=== PATIENT | female | born 1980 | race African-American/Black ===

== ENCOUNTER 2017-02-21 18:07 | Emergency (ER) | payer OTHER ==
[2017-02-21 18:40] VITALS: BP 139/87; PULSE 86; BMI 45.4
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
[2017-02-21] MEDS ORDERED: RANITIDINE HCL 150 MG TABLET (FP) PO ONE (20:09)
--- NOTE | 2017-02-21 20:26 | PDOC ---
*Physical Exam - Vital Signs Last Vital Signs Temp Pulse Resp BP Pulse Ox 86 18 139/87 99 02/21/17 18:37 02/21/17 18:37 02/21/17 18:37 02/21/17 18:37 Medical Decision Making - Medical Decision Making 02/21/17 20:25 agree with care from [facility]
[2017-02-21 20:31] LABS: BASOPHIL 0.4 % (0-2.0); EOSINOPHIL 0.5 % (0-4.5); MCH 29.7 pg (25.7-33.7); MCHC 32.7 g/dl (32.0-36.0); MEAN CELL VOLUME 90.7 fl (80-96); MEAN PLT VOLUME 8.7 fl (7.5-11.1); NEUTROPHILS 60.6 % (42.8-82.8); PLATELET COUNT 322 K/MM3 (134-434); RDW 14.6 % (11.6-15.6); WHITE BLOOD COUNT 11.9 K/mm3 (4.0-10.0)
[2017-02-21 21:03] LABS: ALBUMIN 3.9 g/dl (3.4-5.0); ANION GAP 7 (8-16); BILIRUBIN,TOTAL 0.3 mg/dL (0.2-1.0); CALCIUM 9.7 mg/dL (8.5-10.1); CO2 28 mmol/L (21-32); CREATININE 0.7 mg/dL (0.55-1.02); GLUCOSE,RANDOM 77 mg/dL (74-106); SGOT/AST 12 U/L (15-37); SGPT/ALT 17 U/L (12-78); TOT PROT 7.9 g/dl (6.4-8.2)
[2017-02-21 21:06] LABS: ALK PHOS 70 U/L (45-117); TROPONIN I < 0.02 ng/ml (0.00-0.05)
--- NOTE | 2017-02-22 17:16 | EKG ---
Test Reason : Blood Pressure : / mmHG Vent. Rate : 090 BPM Atrial Rate : 090 BPM P-R Int : 144 ms QRS Dur : 082 ms QT Int : 338 ms P-R-T Axes : 059 010 015 degrees QTc Int : 413 ms NORMAL SINUS RHYTHM POSSIBLE LEFT ATRIAL ENLARGEMENT NORMAL ECG WHEN COMPARED WITH ECG OF 01-OCT-2016 09:09, NO SIGNIFICANT CHANGE WAS FOUND Confirmed by MD SELWYN, YARITZA ([id number]) on 02/22/2017 5:15:41 PM Referred By: Confirmed By:YARITZA SAMANO MD
== END 2017-02-21 22:45 | disposition home or self-care (01) ==
LOC: JER 18:07
DX: R07.89 Other chest pain (principal); E78.00 Pure hypercholesterolemia, unspecified; F41.8 Other specified anxiety disorders; E66.09 Other obesity due to excess calories; Z68.42 Body mass index [BMI] 45.0-49.9, adult
CPT/HCPCS: 36415; 80053; 82550; 84484; 85025; 93005; 93010; 99282-25

== ENCOUNTER 2017-07-18 16:00 | Emergency (ER) | payer OTHER ==
[2017-07-18 16:14] VITALS: BP 121/79; PULSE 95; TEMP 98.9; BMI 45.4
[2017-07-18] MEDS ORDERED: ACETAMINOPHEN 500 MG TABLET (FP) PO ONE (17:04)
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
[2017-07-18] MEDS ORDERED: ACETAMINOPHEN 500 MG TABLET (FP) ONE (17:13)
== END 2017-07-18 19:30 | disposition home or self-care (01) ==
LOC: JERFT 16:00
PROC: 0HQ0XZZ Repair Scalp Skin, External Approach (ICD-10-PCS; principal; 2017-07-18)
DX: S01.01XA Laceration without foreign body of scalp, initial encounter (principal); G44.319 Acute post-traumatic headache, not intractable; Y04.2XXA Assault by strike against or bumped into by another person, initial encounter; Y93.89 Activity, other specified; Y92.89 Other specified places as the place of occurrence of the external cause; Y99.8 Other external cause status
CPT/HCPCS: 70450-TC; 84703; 99281-25

== ENCOUNTER 2017-08-22 08:00 | Inpatient (IN) | payer OTHER ==
[2017-09-04 16:21] VITALS: BMI 45.7
[2017-09-05] MEDS ORDERED: BUPIVACAINE HCL/PF 0.5% (5MG/ML) 10 ML VIAL ONE (13:07)
[2017-09-05] MEDS ORDERED: MIDAZOLAM HCL 2 MG/2 ML SINGLE DOSE VIAL ONE (13:58)
[2017-09-05] MEDS ORDERED: SUCCINYLCHOLINE CHLORIDE 200 MG/10 ML VIAL ONE (13:58)
[2017-09-05] MEDS ORDERED: ROCURONIUM BROMIDE 50 MG/5 ML VIAL ONE ×2 (13:58→15:08)
[2017-09-05] MEDS ORDERED: fentaNYL CITRATE 250 MCG/5 ML VIAL ONE (13:58)
[2017-09-05] MEDS ORDERED: PROPOFOL 20 ML ONE ×2 (13:58)
--- NOTE | 2017-09-05 14:07 | HP ---
History & Physical Update - History History: No Change - Physical Physical: No Change - Assessment Assessment: No Change - Plan Plan: No Change Currently as noted:: Laparoscopic possible open vertical sleeve gastrectomy
[2017-09-05] MEDS ORDERED: LIDOCAINE HCL/PF 2% SDV 5ML VIAL ONE (14:14)
[2017-09-05] MEDS ORDERED: ceFAZolin SODIUM 1 GM VIAL IVPB ONE (14:40)
[2017-09-05] MEDS ORDERED: ceFAZolin SODIUM 1 GM VIAL ONE (14:40)
[2017-09-05] MEDS ORDERED: DEXAMETHASONE SOD PHOSPHATE 4 MG/1 ML VIAL ONE (14:55)
[2017-09-05] MEDS ORDERED: NEOSTIGMINE METHYLSULFATE 0.5 MG/ML - 10 ML MDV ONE (15:54)
[2017-09-05] MEDS ORDERED: GLYCOPYRROLATE 0.2 MG/1 ML VIAL ONE ×2 (15:54)
[2017-09-05] MEDS ORDERED: BUPIVACAINE HCL/PF 0.5% (5MG/ML) 10 ML VIAL IJ ONE (16:00)
--- NOTE | 2017-09-05 16:08 | OP ---
Operative Note - Note: Operative Date: 09/05/17 Pre-Operative Diagnosis: Morbid obesity Operation: Laparoscopic vertical sleeve gastrectomy, wedge liver biopsy, upper endoscopy/EGD Post-Operative Diagnosis: Other (Morbid obesity, hepatomegaly) Surgeon: Reza Johnson Quality Control Tester: Matt Greenfield Anesthesia: General Specimens Removed: Greater curvature of stomach, left lobe wedge liver biopsy Estimated Blood Loss (mls): 30 Drains & Tubes with Location: 36 [address] Operative Report Dictated: Yes
[2017-09-05] MEDS ORDERED: ONDANSETRON 4 MG/2 ML VIAL IVPUSH SCH (16:15)
[2017-09-05] MEDS: ONDANSETRON 4 MG/2 ML VIAL IVPUSH PRN ×2 (16:15→22:10)
[2017-09-05] MEDS ORDERED: SODIUM CHLORIDE 1,000 ML IV SCH (16:15)
[2017-09-05] MEDS ORDERED: HYDROmorphone HCL CARPU-JECT 2 MG/1 ML DISP.SYRIN ONE ×2 (16:20→19:33)
[2017-09-05] MEDS: HYDROmorphone HCL CARPU-JECT 2 MG/1 ML DISP.SYRIN IVPB PRN ×4 (16:20→23:50)
[2017-09-05] MEDS ORDERED: ONDANSETRON 4 MG/2 ML VIAL ONE (16:25)
[2017-09-05] MEDS ORDERED: METOCLOPRAMIDE HCL INJECTION 10 MG/2 ML VIAL ONE (16:25)
[2017-09-05] MEDS ORDERED: FAMOTIDINE 20 MG/50 ML IVPB 20 MG/50 ML MG IVPB ONE (16:32)
[2017-09-05] MEDS ORDERED: HYDROmorphone HCL CARPU-JECT 1 MG/1 ML DISP.SYRIN IVPUSH PRN (16:58)
[2017-09-05] MEDS ORDERED: LACTATED RINGERS SOLUTION 1,000 ML IV SCH (17:00)
[2017-09-05] MEDS ORDERED: FAMOTIDINE 20 MG PREMIXED IVPB IVPB ONE (17:10)
[2017-09-05 17:32] LABS: MCH 30.2 pg (25.7-33.7); MCHC 32.6 g/dl (32.0-36.0); MEAN CELL VOLUME 92.5 fl (80-96); MEAN PLT VOLUME 8.2 fl (7.5-11.1); PLATELET COUNT 312 K/MM3 (134-434); RBC 4.32 M/mm3 (3.60-5.2)
[2017-09-05 17:43] LABS: ALBUMIN 2.8 g/dl (3.4-5.0); ANION GAP 5 (8-16); BILIRUBIN,TOTAL 0.2 mg/dL (0.2-1.0); BLOOD UREA NITROGEN 6 mg/dL (7-18); CHLORIDE 115 mmol/L (98-107); CO2 25 mmol/L (21-32); CREATININE 0.5 mg/dL (0.55-1.02); GLUCOSE,RANDOM 101 mg/dL (74-106); POTASSIUM 3.1 mmol/L (3.5-5.1); SGOT/AST 22 U/L (15-37); SGPT/ALT 27 U/L (12-78); SODIUM 145 mmol/L (136-145)
[2017-09-05 17:44] LABS: ALK PHOS 51 U/L (45-117); TOT PROT 5.6 g/dl (6.4-8.2)
[2017-09-05 17:46] LABS: CALCIUM 6.6 mg/dL (8.5-10.1)
[2017-09-05] MEDS: METOCLOPRAMIDE HCL INJECTION 10 MG/2 ML VIAL IVPUSH SCH ×2 (18:10→22:10)
[2017-09-05] MEDS: ACETAMINOPHEN 1000 MG/100 ML VIAL (NON FORMULARY) IVPB SCH ×2 (19:10→22:11)
[2017-09-05] MEDS ORDERED: ACETAMINOPHEN INJECTION 100 ML IVPB ONE (19:14)
--- NOTE | 2017-09-05 19:33 | CONSULT ---
Consultation: REQUESTING PROVIDER: CONSULT REQUEST: We have been asked to medically evaluate this patient for Hypocalcemia HISTORY OF PRESENT ILLNESS: 35 yo M with pmhx. of HTN, HLD, who is s/p gastric sleev POD #0, Denies any numness or tingling in extremities. No weakness, no chest pain or pressure. Pmhx: HTN, HLD, Obesity PShx: Choleycystectomy, hernia repair REVIEW OF SYSTEMS: CONSTITUTIONAL: Absent: fever, chills, diaphoresis, generalized weakness, malaise, loss of appetite, weight change HEENT: Absent: rhinorrhea, nasal congestion, throat pain, throat swelling, difficulty swallowing, mouth swelling, ear pain, eye pain, visual changes CARDIOVASCULAR: Absent: chest pain, syncope, palpitations, irregular heart rate, lightheadedness , peripheral edema RESPIRATORY: Absent: cough, shortness of breath, dyspnea with exertion, orthopnea, wheezing, stridor, hemoptysis GASTROINTESTINAL: Absent: abdominal pain, abdominal distension, nausea, vomiting, diarrhea, constipation, melena, hematochezia GENITOURINARY: Absent: dysuria, frequency, urgency, hesitancy, hematuria, flank pain, genital pain MUSCULOSKELETAL: Absent: myalgia, arthralgia, joint swelling, back pain, neck pain SKIN: Absent: rash, itching, pallor HEMATOLOGIC/IMMUNOLOGIC: Absent: easy bleeding, easy bruising, lymphadenopathy, frequent infections ENDOCRINE: Absent: unexplained weight gain, unexplained weight loss, heat intolerance, cold intolerance NEUROLOGIC: Absent: headache, focal weakness or paresthesias, dizziness, unsteady gait, seizure, mental status changes, bladder or bowel incontinence PSYCHIATRIC: Absent: anxiety, depression, suicidal or homicidal ideation, hallucinations. PHYSICAL EXAMINATION Vital Signs - 24 hr 09/05/17 09/05/17 11:57 16:11 Temperature 97.9 F 98.7 F Pulse Rate 80 81 Respiratory 16 18 Rate Blood Pressure 118/81 150/94 O2 Sat by Pulse 100 98 Oximetry (%) GENERAL: Awake, alert, and fully oriented, in no acute distress. HEAD: Normal with no signs of trauma. EYES: Pupils equal, round and reactive to light, extraocular movements intact, sclera anicteric, conjunctiva clear. No lid lag. EARS, NOSE, THROAT: Ears normal, nares patent, oropharynx clear without exudates. Moist mucous membranes. NECK: Normal range of motion, supple without lymphadenopathy, JVD, or masses. LUNGS: Breath sounds equal, clear to auscultation bilaterally. No wheezes, and no crackles. No accessory muscle use. HEART: Regular rate and rhythm, normal S1 and S2 without murmur, rub or gallop. ABDOMEN: Soft, nontender, not distended, normoactive bowel sounds, no guarding, no rebound, no masses. No hepatomegaly or splenomegaly. MUSCULOSKELETAL: Normal range of motion at all joints. No bony deformities or tenderness. No CVA tenderness. UPPER EXTREMITIES: 2+ pulses, warm, well-perfused. No cyanosis. No clubbing. Cap refill <2 seconds. No peripheral edema. LOWER EXTREMITIES: 2+ pulses, warm, well-perfused. No calf tenderness. No peripheral edema. NEUROLOGICAL: Cranial nerves II-XII intact. Normal speech. PSYCHIATRIC: Cooperative. Good eye contact. Appropriate mood and affect. SKIN: Warm, dry, normal turgor, no rashes or lesions noted. Laboratory Results - last 24 hr 09/05/17 09/05/17 09/05/17 11:28 11:28 16:45 WBC 14.0 H RBC 4.32 Hgb 13.0 Hct 40.0 MCV 92.5 MCH 30.2 MCHC 32.6 RDW 14.0 Plt Count 312 MPV 8.2 Sodium Potassium Chloride Carbon Dioxide Anion Gap BUN Creatinine Creat Clearance w eGFR Random Glucose Calcium Total Bilirubin AST ALT Alkaline Phosphatase Total Protein Albumin Serum , Qual Negative Blood Type O POSITIVE Antibody Screen Negative 09/05/17 16:45 WBC RBC Hgb Hct MCV MCH MCHC RDW Plt Count MPV Sodium 145 Potassium 3.1 L Chloride 115 H Carbon Dioxide 25 Anion Gap 5 L BUN 6 L Creatinine 0.5 L Creat Clearance w eGFR > 60 Random Glucose 101 Calcium 6.6 L* D Total Bilirubin 0.2 D AST 22 D ALT 27 D Alkaline Phosphatase 51 Total Protein 5.6 L D Albumin 2.8 L Serum , Qual Blood Type Antibody Screen Active Medications Generic Name Dose Route Start Last Admin Trade Name Freq PRN Reason Stop Dose Admin Acetaminophen 1,000 mg 09/05/17 16:15 Ofirmev Injection - IVPB 09/06/17 10:16 Q6H JADIEL Clonazepam 1 mg 09/05/17 22:00 Klonopin - PO TID JADIEL Enoxaparin Sodium 40 mg 09/05/17 22:00 Lovenox - SQ BID JADIEL Hydromorphone HCl 1 mg 09/05/17 16:05 09/05/17 18:10 Dilaudid Injection - IVPB 1 mg Q3H PRN Administration MODERATE PAIN Hydromorphone HCl 0.5 mg 09/05/17 16:58 Dilaudid Injection - IVPUSH [id number] PRN PAIN-PACU ORDER X 4 DOSES ONLY Famotidine 20 mg in 12 mls @ 360 mls/hr 09/05/17 22:00 Pepcid 20 Mg/12 Ml Push IVPUSH BID JADIEL Sodium Chloride 1,000 mls @ 150 mls/hr 09/05/17 16:15 Normal Saline - IV ASDIR JADIEL Lactated Ringer's 1,000 mls @ 75 mls/hr 09/05/17 17:00 Lactated Ringers Solution IV ASDIR JADIEL Influenza Virus Vaccine Quadrival 60 mcg 09/06/17 12:05 Flulaval Quad [id number] IM 09/06/17 12:06 .ONCE ONE Metoclopramide HCl 10 mg 09/05/17 16:15 09/05/17 18:10 Reglan Injection - IVPUSH 10 mg Q6H JADIEL Administration Ondansetron HCl 4 mg 09/05/17 16:58 09/05/17 16:15 Zofran Injection IVPUSH 4 mg Q6H PRN Administration NAUSEA AND/OR VOMITING ASSESSMENT/PLAN: 35 yo M with pmhx. of HTN, HLD, who is s/p gastric sleev POD #0, medicine being consulted for hypocalcemia 1.) Hypocalcemia - CC 7.56 - Chk. Ionized ca in AM -IF resuming oral diet then can take Ca Citrate 500 TID in Conjunction with Vitamin D 800-2000 IU Q day - If cannot tolerate oral meds can give calcium gluconate 1 g Iv - Recheck Level tomorrow and 1 week after d/c Dispo: We will continue to follow the patient. Thank you for this consultative opportunity. Visit type - Emergency Visit Emergency Visit: Yes ED Registration Date: 09/05/17 Care time: The patient presented to the Emergency Department on the above date and was hospitalized for further evaluation of their emergent condition. - New Patient This patient is new to me today: Yes Date on this admission: 09/06/17 - Critical Care Critical Care patient: No
[2017-09-05] MEDS ORDERED: FAMOTIDINE IV 20 MG/12 ML VIAL IVPUSH SCH (22:00)
[2017-09-05] MEDS: clonazePAM 0.5 MG TABLET PO SCH ×2 (22:11→22:17)
[2017-09-05] MEDS: ENOXAPARIN NA (PORCINE) 40 MG/0.4 ML DISP.SYRIN SQ SCH (22:11)
[2017-09-06] MEDS: HYDROmorphone HCL CARPU-JECT 2 MG/1 ML DISP.SYRIN IVPB PRN ×5 (03:14→20:01)
[2017-09-06] MEDS: ACETAMINOPHEN 1000 MG/100 ML VIAL (NON FORMULARY) IVPB SCH ×2 (04:32→16:46)
[2017-09-06] MEDS: METOCLOPRAMIDE HCL INJECTION 10 MG/2 ML VIAL IVPUSH SCH ×4 (04:33→21:31)
[2017-09-06] MEDS: clonazePAM 0.5 MG TABLET PO SCH ×3 (05:45→21:39)
[2017-09-06 06:52] LABS: HEMATOCRIT 39.4 % (32.4-45.2); HEMOGLOBIN 12.6 GM/dL (10.7-15.3); MCH 29.6 pg (25.7-33.7); MCHC 31.9 g/dl (32.0-36.0); MEAN CELL VOLUME 92.8 fl (80-96); MEAN PLT VOLUME 8.2 fl (7.5-11.1); PLATELET COUNT 321 K/MM3 (134-434); RBC 4.24 M/mm3 (3.60-5.2); RDW 13.7 % (11.6-15.6); WHITE BLOOD COUNT 18.1 K/mm3 (4.0-10.0)
[2017-09-06 07:24] LABS: ALBUMIN 3.3 g/dl (3.4-5.0); ALK PHOS 61 U/L (45-117); ANION GAP 11 (8-16); BILIRUBIN,TOTAL 0.3 mg/dL (0.2-1.0); BLOOD UREA NITROGEN 5 mg/dL (7-18); CALCIUM 8.7 mg/dL (8.5-10.1); CHLORIDE 103 mmol/L (98-107); CO2 26 mmol/L (21-32); CREATININE 0.7 mg/dL (0.55-1.02); GLUCOSE,RANDOM 90 mg/dL (74-106); SGOT/AST 29 U/L (15-37); SGPT/ALT 32 U/L (12-78); SODIUM 140 mmol/L (136-145); TOT PROT 7.1 g/dl (6.4-8.2)
--- NOTE | 2017-09-06 09:39 | SPEC ---
DATE OF OPERATION: 09/05/2017 SURGEON: Reza Johnson MD SKIDDER RUNNER: Matt Greenfield MD PREOPERATIVE DIAGNOSIS: Morbid obesity, hypercholesterolemia, and body mass index of 45.7. POSTOPERATIVE DIAGNOSIS: Morbid obesity, hypercholesterolemia, and body mass index of 45.7, as well as hepatomegaly PROCEDURE: Laparoscopic vertical sleeve gastrectomy, laparoscopic wedge liver biopsy and upper endoscopy/esophagogastroduodenoscopy. SPECIMEN: Greater curvature of the stomach and left lobe of the liver wedge liver biopsy. ESTIMATED BLOOD LOSS: 30 mL. DRAINS: None. ANESTHESIA: GET. BOUGIE SIZE: 36-Persian. REASON FOR PROCEDURE: This is a 36-year-old female who presented to the office for weight loss options. After describing different options, she decided to proceed with a laparoscopic possible open vertical sleeve gastrectomy, possible liver biopsy and upper endoscopy. RISKS AND BENEFITS: After describing the different options for weight loss management, the patient decided to proceed with a laparoscopic, possible open vertical sleeve gastrectomy. The patient was seen by the respective subspecialties and cleared for surgery. The risks and benefits of the procedure were explained. These included bleeding, infection, hernia, DE, DVT, PE, injury to surrounding structures including the liver, colon, bowel, spleen, esophagus, vessel injury, nerve injury, weight regain, gastric leak, staple line leak, sleeve leak, obstruction, vitamin deficiency, hair loss and as some of the possible complications. The patient understood and signed informed consent. DESCRIPTION OF PROCEDURE: The patient was placed supine on the operating room table. The patient underwent general endotracheal intubation. A Christiansen catheter was inserted. The arms were brought out at 90 degrees and secured. A footboard was placed and the legs were secured laterally with padding. The abdomen was prepped and draped in the usual sterile fashion. A timeout was performed. An incision was made in the left upper quadrant and a Veress needle inserted. Pneumoperitoneum was established. Subsequently, the Veress needle was removed and a 12-mm trocar was placed. The laparoscopic camera was then inserted and inspection of the abdominal cavity was performed. An incision was then made in the supraumbilical area and a 15-mm trocar was placed under direct visualization. A 5-mm trocar was then placed in the right upper quadrant and a 5-mm trocar was placed below the left subcostal margin. A stab wound was made in the subxiphoid area and a Yancy clamp inserted and removed to dilate the tract. A Chirag liver retractor was inserted. The post was secured at the bedside by the nursing staff. The patient was placed in steep reverse Trendelenburg position and the Chirag liver retractor was used to secure the liver towards the anterior abdominal wall. The pylorus was identified and 6 cm proximal to it, the lesser sac was entered using the LigaSure device. All lateral attachments to the greater curvature of the stomach, including the short gastric vessels, were ligated using the LigaSure device toward the gastrosplenic and gastrophrenic ligaments. Once this was done in its entirety, it was confirmed that all tubes within the nasal or oropharyngeal cavity, including a temperature probe, was removed by Anesthesia. The bougie was then inserted by Anesthesia. Transection of the stomach was then begun staying adjacent to the bougie but away from the angularis. Transection of the stomach was performed near the portion of the stomach where the lesser sac was entered. Two laparoscopic Endo-TORREY black kristen were used at this location. Laparoscopic Endo TORREY purple staple loads were then used for the remainder of the transection until the greater curvature of the stomach was fully transected. This was done staying close to the bougie. Care was taken to stay away from the angle of His cephalad. The staple line was then inspected. Hemostasis was identified. A leak test was then performed. It was clamped distally to the staple line. Irrigation solution was placed in the left upper quadrant and air was insufflated by Anesthesia into the sleeve. No leaks were identified. No obstruction was identified. This was done through the entirety of the staple line. At this point, the irrigation solution was suctioned and again, hemostasis was noted. A wedge liver biopsy was then performed. The left lobe of the liver was identified and a portion of the edge was grasped. Using electrocautery, a wedge of the liver was excised. This was removed and sent off the field as specimen. Hemostasis at the site of the wedge liver biopsy was attained using electrocautery. The 15-mm supraumbilical trocar was then removed and the greater curvature specimen removed from the site using a sponge stick ly. The specimen was inspected and a Veress needle inserted. The specimen insufflated adequately and no leak was identified. The staple line was noted to be intact. A Art-Levi device was then used to temporarily close the fascia with a 0 Vicryl suture at the site. The 15-mm trocar was then reinserted and the 12-mm trocar in the left upper quadrant was removed. The fascia at this site was then closed using the Art-Levi device with a 0 Vicryl suture. Again, hemostasis was noted. The Chirag liver retractor was then removed under direct visualization. Pneumoperitoneum was desufflated and the fascial sutures were secured. Hemostasis was noted at all incision sites and Marcaine was injected at all incision sites. All incision sites were closed using 4-0 Biosyn. Sterile dressings were applied. In addition at the end of the case, upper endoscopy was performed to further evaluate for obstruction or leak. The endoscope was fully inserted, and the esophagus, GE junction, gastric pouch, and staple line was inspected. Hemostasis was noted. No leak or obstruction was noted. The patient tolerated the procedure well and was transferred to the recovery room in stable condition. Francisco Javier [id number]
[2017-09-06] MEDS ORDERED: PT OWN MED DRAWER 7, Y5N ONE (11:05)
[2017-09-06] MEDS: ENOXAPARIN NA (PORCINE) 40 MG/0.4 ML DISP.SYRIN SQ SCH ×2 (11:50→21:39)
[2017-09-06] MEDS: FAMOTIDINE 20 MG/50 ML IVPB 20 MG/50 ML MG IVPB SCH ×2 (11:50→21:30)
[2017-09-06] MEDS ORDERED: FLU VACCINE QUAD 60 MCG/0.5 ML (MDV 17-18) IM ONE (15:00)
--- NOTE | 2017-09-06 15:55 | PN ---
Progress Note (short form) - Note Progress Note: Post op day#1.S/P Gastric sleeve placement under GA uneventful.Patient stable.No any anesthesia related problem.Patient DC from the anesthesia care.
[2017-09-06] MEDS ORDERED: oxyCODONE HCL 5 MG TABLET PO PRN (16:15)
[2017-09-06] MEDS: AMOX TR/POT CLAV 875MG/125MG TABLETS (FP) PO SCH ×2 (16:37→18:04)
--- NOTE | 2017-09-06 18:06 | PN ---
Progress Note (short form) - Note Progress Note: POD 1 Mild nausea Pain controlled Vital Signs Period Temp Pulse Resp BP Sys/Newell Pulse Ox Last 24 Hr 97.5 F-98.6 F 69-87 16-18 120-145/77-98 97-100 Abd soft CBC,CMP WBC 18.1 K/mm3 (4.0-10.0) H 09/06/17 05:40 RBC 4.24 M/mm3 (3.60-5.2) 09/06/17 05:40 Hgb 12.6 GM/dL (10.7-15.3) 09/06/17 05:40 Hct 39.4 % (32.4-45.2) 09/06/17 05:40 MCV 92.8 fl (80-96) 09/06/17 05:40 MCH 29.6 pg (25.7-33.7) 09/06/17 05:40 MCHC 31.9 g/dl (32.0-36.0) L 09/06/17 05:40 RDW 13.7 % (11.6-15.6) 09/06/17 05:40 Plt Count 321 K/MM3 (134-434) 09/06/17 05:40 MPV 8.2 fl (7.5-11.1) 09/06/17 05:40 Sodium 140 mmol/L (136-145) 09/06/17 05:40 Potassium 4.0 mmol/L (3.5-5.1) 09/06/17 05:40 Chloride 103 mmol/L (98-107) 09/06/17 05:40 Carbon Dioxide 26 mmol/L (21-32) 09/06/17 05:40 Anion Gap 11 (8-16) 09/06/17 05:40 BUN 5 mg/dL (7-18) L 09/06/17 05:40 Creatinine 0.7 mg/dL (0.55-1.02) 09/06/17 05:40 Creat Clearance w eGFR > 60 (>60) 09/06/17 05:40 Random Glucose 90 mg/dL (74-106) 09/06/17 05:40 Calcium 8.7 mg/dL (8.5-10.1) D 09/06/17 05:40 Total Bilirubin 0.3 mg/dL (0.2-1.0) D 09/06/17 05:40 AST 29 U/L (15-37) D 09/06/17 05:40 ALT 32 U/L (12-78) 09/06/17 05:40 Alkaline Phosphatase 61 U/L (45-117) D 09/06/17 05:40 Total Protein 7.1 g/dl (6.4-8.2) D 09/06/17 05:40 Albumin 3.3 g/dl (3.4-5.0) L 09/06/17 05:40 Serum , Qual Negative 09/05/17 11:28 UGI: no leak/obstruction Clears CBC in am Ambulate
--- NOTE | 2017-09-06 18:34 | PN ---
Teaching Attending Note Name of Resident: Bello Melara ATTENDING PHYSICIAN STATEMENT I saw and evaluated the patient. I reviewed the resident's note and discussed the case with the resident. I agree with the resident's findings and plan as documented. SUBJECTIVE: seen at 11 am No fever or chills . has ABd pain , has no N/V . reports intermittent pressure with urination. denies any vaginal discharge , reports being treated with amoxicillin for a dental abscess, ( stared 2 days prior to presentation ) . she reports cough with green sputum, which developed after 10 days of URI sx . No BM yet OBJECTIVE: NAD , AAOx3 HEENT : No facial drop, MMM. no eythema on gum , RU molar with a temporary filling CV: RRR, no MRG Lungs : CTAB Ext: no edema Abd: soft, Nd, obese, TTP in all quadrants, surgical dressing on endoscopic surgical wounds . hypoactive BS. ASSESSMENT AND PLAN: 36 y/o lady with h/o morbid obesity, and recent diagnosis of dental abscess who presented for a gastric sleeve surgery and medicine was consulted for hypocalcemia 1- Hypocalcemia: corrected ca today is NL without intervention pt has no sign sor sx of hypocalcemia anticipate hypocalcemia after surgery due to diet change calcium supplements and Vit D 2- Leukocytosis : most likley reactive to stress after sx. No fever or chills . - check UA due to urinary complaints - she might have bacterial bronchitis given productive cough of green sputum x days after URI - pt was started on amoxicillin for a dental abscess 2 days prior to presentation with improvement in her facial swelling and sx , recommend Augmentin 875 q 12 hours. - cxray 3- Recommend screening for DM with A1c. DVT px per surgical team.
[2017-09-06] MEDS: SODIUM CHLORIDE 1,000 ML IV SCH ×2 (19:21→20:10)
--- NOTE | 2017-09-06 20:08 | PN ---
Physical Exam: SUBJECTIVE: Patient seen and examined Pt denies camilla-oral numbness or tingling, weakness, paresthesias in other parts of her body. She endorses a productive cough that started 10 days ago with clear sputum that converted to green sputum. She states that she was placed on amoxicillin for prior dental abscess. She also endorses intermittent bladder pressure on urination that has occurred for past two weeks, and she complains of back pain that began after surgery. OBJECTIVE: Vital Signs Period Temp Pulse Resp BP Sys/Newell Pulse Ox Last 24 Hr 97.5 F-98.9 F 68-87 16-20 120-150/77-91 97-100 GENERAL: obese female, sitting in bed in NAD HEENT: poor dentition. no obvious gum swelling, bleeding, or masses NECK: Trachea midline, full range of motion, supple. LUNGS: Breath sounds equal, clear to auscultation bilaterally, no wheezes, no crackles, no accessory muscle use. HEART: Regular rate and rhythm, S1, S2 without murmur, rub or gallop. ABDOMEN: obese, soft, nontender, nondistended, normoactive bowel sounds, no guarding, no rebound, no hepatosplenomegaly, no masses. EXTREMITIES: 2+ pulses, warm, well-perfused, no edema. NEUROLOGICAL: Cranial nerves II through XII grossly intact. Normal speech, gait not observed. Laboratory Results - last 24 hr 09/06/17 09/06/17 05:40 05:40 WBC 18.1 H RBC 4.24 Hgb 12.6 Hct 39.4 MCV 92.8 MCH 29.6 MCHC 31.9 L RDW 13.7 Plt Count 321 MPV 8.2 Sodium 140 Potassium 4.0 Chloride 103 Carbon Dioxide 26 Anion Gap 11 BUN 5 L Creatinine 0.7 Creat Clearance w eGFR > 60 Random Glucose 90 Calcium 8.7 D Total Bilirubin 0.3 D AST 29 D ALT 32 Alkaline Phosphatase 61 D Total Protein 7.1 D Albumin 3.3 L Active Medications Generic Name Dose Route Start Last Admin Trade Name Freq PRN Reason Stop Dose Admin Clonazepam 1 mg 09/05/17 22:00 09/06/17 16:14 Klonopin - PO Not Given TID [facility] Enoxaparin Sodium 40 mg 09/05/17 22:00 09/06/17 11:50 Lovenox - SQ 40 mg BID JADIEL Administration Hydromorphone HCl 1 mg 09/05/17 16:05 09/06/17 16:37 Dilaudid Injection - IVPB 1 mg Q3H PRN Administration MODERATE PAIN Hydromorphone HCl 0.5 mg 09/05/17 16:58 Dilaudid Injection - IVPUSH [id number] PRN PAIN-PACU ORDER X 4 DOSES ONLY Famotidine/Sodium Chloride 20 mg in 50 mls @ 100 mls/hr 09/05/17 22:30 11:50 Pepcid 20 Mg Premixed Ivpb - IVPB 100 mls/hr BID JADIEL Administration Sodium Chloride 1,000 mls @ 75 mls/hr 09/06/17 16:15 09/06/17 19:21 Normal Saline - IV Not Given ASDIR JADIEL Metoclopramide HCl 10 mg 09/05/17 16:15 09/06/17 16:38 Reglan Injection - IVPUSH 10 mg Q6H JADIEL Administration Oxycodone HCl 5 mg 09/06/17 16:15 Roxicodone - PO Q4H PRN PAIN LEVEL 4 - 6 ASSESSMENT/PLAN: 36F w/ hx of morbid obesity, s/p gastric sleeve surgery POD#1, medicine consulted for hypocalcemia. #Hypocalcemia- resolved -corrected calcium today is wnl without any intervention -pt demonstrates no signs or sx of hypocalcemia -calcium supplements and vit D for suspected future nutritional deficiencies #Leukocytosis -most likely 2/2 leukemoid reaction after surgery. -no fever -continue to trend temps and wbc counts -f/u UA -f/u CXR #productive cough -possibly 2/2 bacterial bronchitis - pt was started on amoxicillin for a dental abscess 2 days prior to presentation with improvement in her facial swelling and sx, recommend Augmentin 875mg q12 hours. -f/u CXR #Recommend screening for DM with A1c. #DVT px per surgical team. Case discussed with attending, Dr. Gillis. -Bello Melara MD PGY1 Visit type - Emergency Visit Emergency Visit: No - New Patient This patient is new to me today: Yes Date on this admission: 09/06/17 - Critical Care Critical Care patient: No
[2017-09-07] MEDS: METOCLOPRAMIDE HCL INJECTION 10 MG/2 ML VIAL IVPUSH SCH ×2 (04:50→10:26)
[2017-09-07] MEDS: HYDROmorphone HCL CARPU-JECT 2 MG/1 ML DISP.SYRIN IVPB PRN ×2 (05:40→10:27)
[2017-09-07] MEDS: clonazePAM 0.5 MG TABLET PO SCH (05:44)
[2017-09-07 07:41] LABS: BASO % 0.5 % (0-2.0); EOS % 0.2 % (0-4.5); HEMATOCRIT 36.8 % (32.4-45.2); HEMOGLOBIN 12.1 GM/dL (10.7-15.3); LYMPH % 13.5 % (8-40); MCH 30.3 pg (25.7-33.7); MEAN CELL VOLUME 91.9 fl (80-96); MEAN PLT VOLUME 7.9 fl (7.5-11.1); MONO % 8.6 % (3.8-10.2); NEUT % 77.2 % (42.8-82.8); PLATELET COUNT 282 K/MM3 (134-434); RBC 4.01 M/mm3 (3.60-5.2); RDW 13.6 % (11.6-15.6); WHITE BLOOD COUNT 15.3 K/mm3 (4.0-10.0)
--- NOTE | 2017-09-07 08:34 | PN ---
Physical Exam: SUBJECTIVE: Patient seen and examined. No fever or chills. No cough, shortness of breath or chest pain. No BM or flatus, but has been burping. No tooth pain. OBJECTIVE: Vital Signs Period Temp Pulse Resp BP Sys/Newell Pulse Ox Last 24 Hr 98.1 F-98.9 F 68-79 18-20 113-150/77-88 97 GENERAL: obese female, sitting in bed in NAD HEENT: poor dentition. no obvious gum swelling, bleeding, or masses NECK: Trachea midline, full range of motion, supple. LUNGS: CTAB HEART: rrr, normal s1/s2, no m/r/g ABDOMEN: obese, soft, non-distended, c/d/i intact over surgical sites, diffusely ttp LOWER EXTREMITIES: 2+ pulses, wwp, no edema CBC, BMP 09/07/17 06:00 09/07/17 06:00 Hemoglobin A1c % 5.4 Urine Test Results Urine Color Ltyellow 09/07/17 05:45 Urine Appearance Clear 09/07/17 05:45 Urine pH 6.0 (5.0-8.0) 09/07/17 05:45 Ur Specific [place] 1.012 (1.001-1.035) 09/07/17 05:45 Urine Protein Negative (NEGATIVE) 09/07/17 05:45 Urine Glucose (UA) Negative (NEGATIVE) 09/07/17 05:45 Urine Ketones 2+ (NEGATIVE) H 09/07/17 05:45 Urine Blood 3+ (NEGATIVE) H 09/07/17 05:45 Urine Nitrite Negative (NEGATIVE) 09/07/17 05:45 Urine Bilirubin Negative (NEGATIVE) 09/07/17 05:45 Ur Leukocyte Esterase Trace (NEGATIVE) 09/07/17 05:45 Ur Epithelial Cells Few /HPF (FEW) 09/07/17 05:45 Urine Bacteria Rare /hpf (NONE SEEN) 09/07/17 05:45 Urine Mucus Few 09/07/17 05:45 Active Medications Clonazepam (Klonopin -) 1 mg PO TID [facility] Last Admin: 09/07/17 05:44 Dose: Not Given Enoxaparin Sodium (Lovenox -) 40 mg SQ BID [facility] Last Admin: 09/07/17 10:26 Dose: 40 mg Hydromorphone HCl (Dilaudid Injection -) 1 mg IVPB Q3H PRN PRN Reason: MODERATE PAIN Last Admin: 09/07/17 10:27 Dose: 1 mg Hydromorphone HCl (Dilaudid Injection -) 0.5 mg IVPUSH [id number] PRN PRN Reason: PAIN-PACU ORDER X 4 DOSES ONLY Famotidine/Sodium Chloride (Pepcid 20 Mg Premixed Ivpb -) 20 mg in 50 mls @ 100 mls/hr IVPB BID [facility] Last Admin: 09/07/17 10:26 Dose: 100 mls/hr Sodium Chloride (Normal Saline -) 1,000 mls @ 75 mls/hr IV ASDIR [facility] Last Admin: 09/06/17 20:10 Dose: 75 mls/hr Metoclopramide HCl (Reglan Injection -) 10 mg IVPUSH Q6H [facility] Last Admin: 09/07/17 10:26 Dose: 10 mg Oxycodone HCl (Roxicodone -) 5 mg PO Q4H PRN PRN Reason: PAIN LEVEL 4 - 6 ASSESSMENT/PLAN: 36F w/ hx of morbid obesity, s/p gastric sleeve surgery POD#2, medicine consulted for hypocalcemia. #Hypocalcemia- resolved -recommend calcium supplements and vit D for suspected future nutritional deficiencies #Leukocytosis, continues to downtrend, UA and CXR neg, likely 2/2 leukemoid reaction after surgery -Continue to monitor for signs of infection #productive cough, resolving, possibly 2/2 bacterial bronchitis, CXR 09/06/17 neg for acute pathology -Given recent treatment for dental abscess and recent URI symptoms consider Augmentin 875mg q12 hours for 5-7 days #Diabetes Screening - negative (Alc 5.4%) #DVT px per surgical team. Thank your for this consultative opportunity. Please call back if needed. d/w Dr. Carlin Richard MD PGY1 - Internal Medicine Visit type - Emergency Visit Emergency Visit: No - New Patient This patient is new to me today: Yes Date on this admission: 09/07/17 - Critical Care Critical Care patient: No
[2017-09-07 08:35] LABS: URINE APPEARANCE CLEAR; URINE BILIRUBIN NEGATIVE (NEGATIVE); URINE BLOOD 3+ (NEGATIVE); URINE COLOR LTYELLOW; URINE GLUCOSE (UA) NEGATIVE (NEGATIVE); URINE KETONE 2+ (NEGATIVE); URINE LEUK ESTERASE TRACE (NEGATIVE); URINE NITRITE NEGATIVE (NEGATIVE); URINE PROTEIN NEGATIVE (NEGATIVE)
[2017-09-07 09:00] LABS: EPI CELLS FEW /HPF (FEW); URINE BACTERIA RARE /hpf (NONE SEEN); URINE MUCUS FEW; YEAST MODERATE
[2017-09-07] MEDS: FAMOTIDINE 20 MG/50 ML IVPB 20 MG/50 ML MG IVPB SCH (10:26)
[2017-09-07] MEDS: ENOXAPARIN NA (PORCINE) 40 MG/0.4 ML DISP.SYRIN SQ SCH (10:26)
[2017-09-07 10:52] VITALS: BP 137/77; PULSE 68; TEMP 97.8
--- NOTE | 2017-09-07 13:30 | PN ---
Teaching Attending Note Name of Resident: Beena Richard ATTENDING PHYSICIAN STATEMENT I saw and evaluated the patient. I reviewed the resident's note and discussed the case with the resident. I agree with the resident's findings and plan as documented. SUBJECTIVE: seen at 11 am . minimla Ab dpain, NO BM or flatus . tolerated clears OBJECTIVE: NAD , AAOx3 CV: RRR, no MRG Lungs : CTAB Ext: no edema Abd: soft, Nd, obese, TTP in all quadrants, surgical dressing on endoscopic surgical wounds . hypoactive BS. ASSESSMENT AND PLAN: 36 y/o lady with h/o morbid obesity, and recent diagnosis of dental abscess who presented for a gastric sleeve surgery and medicine was consulted for hypocalcemia 1- Hypocalcemia: resolved.calcium supp and vit d as outpt 2- Leukocytosis : improved . no fever . cxray and UA with no infection cont Abx for dental abscess . f/u with dentist for rot canal 3- No DM 4- Microscopic hematuria . not clear if she has her period. need repeat UA if no period. pt has left already , will call her and notify of need to follow up with PCP
--- NOTE | 2017-09-09 16:29 | PATH ---
Surgical Pathology Report Patient Name: MILADYS WHITE [facility]. Rec. #: [id number] /Age/Gender: 1980 (Age: 36) / F Account: [id number] Location: 4 PEDS/ADOL Taken: 09/05/2017 Received: 09/06/2017 Reported: 09/09/2017 Physicians: Reza Johnson M.D. Specimen(s) Received A: LIVER BIOPSY B: GREATER CURVATURE STOMACH Clinical History Morbid obesity Final Diagnosis A. LIVER, WEDGE BIOPSY: LIVER PARENCHYMA WITH MILD STEATOSIS (< 10%). NO INCREASE IN IRON AND FIBROSIS ON PERFORMED SPECIAL STAINS (IRON AND TRICHROME). B. STOMACH, GREATER CURVATURE, LAPAROSCOPIC VERTICAL SLEEVE GASTRECTOMY: PORTION OF STOMACH WITH MILD CHRONIC GASTRITIS. IMMUNOHISTOCHEMICAL STAIN FOR H. PYLORI IS NEGATIVE. Electronically Signed Jenny Wallace M.D. Gross Description A. Received in formalin labeled "liver biopsy," is a 1.1 x 1.1 x 0.4 cm mathur, irregular portion of liver tissue. The specimen is bisected and entirely submitted in one cassette. B. Received in formalin, labeled "greater curvature of stomach," is a 115 gram, 19.5 x 3.5 x 3.2 cm. portion of stomach with a stapled margin of resection. The serosa is mathur-suggs with minimal attached fat. The mucosa is mathur-pink with normal folds. No mucosal masses are identified. Classroom Technology Coach sections are submitted in one cassette. DL/09/06/2017 saudi/09/06/2017
== END 2017-09-07 12:31 | disposition home or self-care (01) | DRG 403 ==
LOC: EDSTATUS 08:00 → JSAMEDAYSX 09-05 11:21 → J4S 09-05 21:24
PROVIDERS: ADMIT Surgery; ATTEND Surgery
PROC: 0DJ08ZZ Inspection of Upper Intestinal Tract, Via Natural or Artificial Opening Endoscopic (ICD-10-PCS; 2017-09-05)
PROC: 0DB64Z3 Excision of Stomach, Percutaneous Endoscopic Approach, Vertical (ICD-10-PCS; principal; 2017-09-05 13:00)
PROC: 0FB24ZX Excision of Left Lobe Liver, Percutaneous Endoscopic Approach, Diagnostic (ICD-10-PCS; 2017-09-05 13:00)
DX: E66.01 Morbid (severe) obesity due to excess calories (principal); Z68.42 Body mass index [BMI] 45.0-49.9, adult; R16.0 Hepatomegaly, not elsewhere classified; K76.0 Fatty (change of) liver, not elsewhere classified; E83.51 Hypocalcemia; D72.829 Elevated white blood cell count, unspecified; R31.29 Other microscopic hematuria; K29.50 Unspecified chronic gastritis without bleeding; I10 Essential (primary) hypertension; E78.5 Hyperlipidemia, unspecified
CPT/HCPCS: 36415; 71045-TC; 74241-TC; 80053; 81003; 81015; 83036; 84703; 85025; 85027; 86850; 86900; 86901; 87081; 88307-TC; 94760; 97802

== ENCOUNTER 2017-09-12 16:43 | Observation (INO) | payer OTHER ==
[2017-09-12 17:01] VITALS: BMI 43.8
--- NOTE | 2017-09-12 17:36 | PDOC ---
History of Present Illness - General Chief Complaint: Pain Stated Complaint: ABD PAIN Time Seen by Provider: 09/12/17 17:26 History Source: Patient Exam Limitations: No Limitations - History of Present Illness Initial Comments: 09/12/17 17:35 36F with pmh gastric sleeve placement last week By Dr. Johnson presents with epigastric pain radiating around her right side to her back. Denies nausea, vomiting. No bm since last week but passes gas. Difficulty eating because of pain, loss of appetite. 09/12/17 20:43 09/12/17 20:44 09/12/17 22:55 09/12/17 23:32 Past History - Past Medical History Allergies/Adverse Reactions: Allergies Allergy/AdvReac Type Severity Reaction Status Date / Time ciprofloxacin [From Cipro] Allergy Intermediate Hives Verified 09/12/17 20:00 ciprofloxacin HCl Allergy Intermediate Hives Verified 09/12/17 20:00 [From Cipro] hydromorphone [From Dilaudid] Allergy Intermediate Hives Verified 09/12/17 21:27 shrimp Allergy "HIVES" Verified 09/12/17 20:00 Home Medications: Ambulatory Orders Clonazepam [Klonopin] 1 mg PO TID 09/04/17 Famotidine [Pepcid] 20 mg PO BID #60 tablet 09/05/17 Ibuprofen [Motrin -] 800 mg PO QID PRN 09/05/17 Oxycodone HCl/Acetaminophen [Percocet 5-325 mg Tablet] 1 - 2 tab PO Q6H #28 tab MDD 4 09/05/17 Anemia: No Asthma: No Cancer: No Cardiac Disorders: No CVA: No COPD: No CHF: No Diabetes: No GI Disorders: No Disorders: No HTN: No Hypercholesterolemia: Yes Liver Disease: No Psychiatric Problems: Yes (ANXIETY.DEPRESSION) Seizures: Yes (1YEAR AGO-WAS ON MED FOR 2WEEKS THEN STOPPED (PMD AWARE)) Thyroid Disease: No - Surgical History Abdominal Surgery: Yes (UMBILICAL HERNIA REPAIR) Cholecystectomy: Yes - Immunization History Td Vaccination: No Immunization Up to Date: Yes - Suicide/Smoking/Psychosocial Hx Smoking Status: No Smoking History: Former smoker Years of Tobacco Use: 0 Have you smoked in the past 12 months: No Number of Cigarettes Smoked Daily: 1 If you are a former smoker, when did you quit?: 4YRS AGO Cigars Per Day: 0 Information on smoking cessation initiated: No Hx Alcohol Use: No Drug/Substance Use Hx: No Substance Use Type: Alcohol, Marijuana Hx Substance Use Treatment: No Review of Systems - Review of Systems Able to Perform ROS?: Yes Is the patient limited Hungarian proficient: No Constitutional: Yes: Loss of Appetite HEENTM: No: Symptoms Reported Respiratory: No: Symptoms reported Cardiac (ROS): No: Symptoms Reported ABD/GI: Yes: See HPI : No: Symptoms Reported Musculoskeletal: No: Symptoms Reported Integumentary: No: Symptoms Reported Neurological: No: Symptoms reported All Other Systems: Reviewed and Negative *Physical Exam - Vital Signs Last Vital Signs Temp Pulse Resp BP Pulse Ox 97.7 F 100 H 20 143/84 100 09/12/17 16:56 09/12/17 16:56 09/12/17 16:56 09/12/17 16:56 09/12/17 16:56 - Physical Exam General Appearance: Yes: Nourished, Appropriately Dressed, Moderate Distress, Obese HEENT: positive: EOMI, ZOEY, Normal ENT Inspection Neck: negative: Tender Respiratory/Chest: positive: Lungs Clear, Normal Breath Sounds. negative: Chest Tender, Respiratory Distress Cardiovascular: positive: Regular Rhythm, Regular Rate, S1, S2 Gastrointestinal/Abdominal: positive: Normal Bowel Sounds, Tender (epigastric) Extremity: positive: Normal Capillary Refill, Normal Inspection, Normal Range of Motion Neurologic: positive: Fully Oriented, Alert, Normal Mood/Affect ED Treatment Course - LABORATORY CBC & Chemistry Diagram: 09/12/17 18:03 09/12/17 18:03 Medical Decision Making - Medical Decision Making 09/12/17 22:01 Given 0.5 dilaudid for pain 09/12/17 22:23 Hives from Dilaudid given benadryl, protonix, zofran. Basic labs. D5NS bolus not available. D50w push to correct glucose of 60 Spoke to Bariatric surgeon Reza Johnson who wants a call back after ct abdomen with contrast. CT abd with PO + IV contrast pending 09/12/17 22:56 DVT negative Gallbladder US: Negative 09/12/17 23:32 09/12/17 23:56 Patient signed out to Dr. Can *DC/Admit/Observation/Transfer Diagnosis at time of Disposition: Abdominal pain - Referrals Referrals: Abdulkadir Lindsey MD [Primary Care Provider] - - Patient Instructions - Post Discharge Activity
[2017-09-12 18:43] LABS: BASO % 0.6 % (0-2.0); EOS % 0.6 % (0-4.5); HEMATOCRIT 43.3 % (32.4-45.2); HEMOGLOBIN 14.4 GM/dL (10.7-15.3); LYMPH % 18.1 % (8-40); MCH 30.4 pg (25.7-33.7); MCHC 33.2 g/dl (32.0-36.0); MEAN CELL VOLUME 91.4 fl (80-96); MEAN PLT VOLUME 7.6 fl (7.5-11.1); MONO % 9.1 % (3.8-10.2); NEUT % 71.6 % (42.8-82.8); PLATELET COUNT 428 K/MM3 (134-434); RBC 4.74 M/mm3 (3.60-5.2); RDW 13.5 % (11.6-15.6); WHITE BLOOD COUNT 13.2 K/mm3 (4.0-10.0)
[2017-09-12 18:58] LABS: ALBUMIN 3.8 g/dl (3.4-5.0); ANION GAP 15 (8-16); BLOOD UREA NITROGEN 6 mg/dL (7-18); CALCIUM 9.2 mg/dL (8.5-10.1); CHLORIDE 100 mmol/L (98-107); CO2 20 mmol/L (21-32); GLUCOSE,RANDOM 61 mg/dL (74-106); POTASSIUM 3.5 mmol/L (3.5-5.1); SGOT/AST 10 U/L (15-37); SGPT/ALT 21 U/L (12-78); SODIUM 135 mmol/L (136-145)
[2017-09-12 19:01] LABS: ALK PHOS 73 U/L (45-117); BILIRUBIN,TOTAL 0.5 mg/dL (0.2-1.0); CREATININE 0.7 mg/dL (0.55-1.02); TOT PROT 8.6 g/dl (6.4-8.2)
[2017-09-12 19:31] LABS: INR 1.21 (0.82-1.09); PROTHROMBIN TIME (PATIENT) 13.7 SEC (9.98-11.88)
[2017-09-12 19:33] LABS: ACTIVATED PTT 32.9 SECONDS (26.9-34.4)
[2017-09-12] MEDS ORDERED: HYDROmorphone HCL CARPU-JECT 1 MG/1 ML DISP.SYRIN IVPB ONE (20:02)
[2017-09-12] MEDS ORDERED: HYDROmorphone HCL CARPU-JECT 2 MG/1 ML DISP.SYRIN ONE (20:19)
[2017-09-12] MEDS ORDERED: ONDANSETRON 4 MG/2 ML VIAL IVPUSH ONE (20:42)
[2017-09-12] MEDS: DEXTROSE 5%-NORMAL SALINE 1,000 ML IV SCH ×2 (20:44→21:17)
[2017-09-12] MEDS ORDERED: ONDANSETRON 4 MG/2 ML VIAL ONE (20:45)
[2017-09-12] MEDS ORDERED: FAMOTIDINE 20 MG/50 ML IVPB 20 MG/50 ML MG IVPB ONE ×2 (20:49→22:11)
[2017-09-12] MEDS ORDERED: methylPREDNISolone NA SUCC 125 MG/2 ML VIAL ONE (20:49)
[2017-09-12] MEDS ORDERED: methylPREDNISolone NA SUCC 125 MG/2 ML VIAL IVPUSH ONE (20:49)
[2017-09-12] MEDS ORDERED: FAMOTIDINE IV 20 MG/12 ML VIAL IVPUSH ONE (21:03)
[2017-09-12] MEDS ORDERED: DEXTROSE 50%-WATER - 25 GM/50 ML VIAL IVPUSH ONE (21:15)
[2017-09-12] MEDS ORDERED: DEXTROSE 50%-WATER 25 GM/50 ML DISP.SYRIN ONE (21:18)
[2017-09-12] MEDS: FAMOTIDINE IV 20 MG/12 ML VIAL IVPUSH SCH (22:10)
[2017-09-13] MEDS ORDERED: PIPERACILLIN/TAZOB 3.375 GM 50 ML IVPB ONE (01:57)
--- NOTE | 2017-09-13 01:58 | PDOC ---
*Physical Exam - Vital Signs Last Vital Signs Temp Pulse Resp BP Pulse Ox 97.7 F 100 H 20 132/83 100 09/12/17 16:56 09/12/17 20:40 09/12/17 20:40 09/12/17 20:40 09/12/17 20:40 ED Treatment Course - LABORATORY CBC & Chemistry Diagram: 09/12/17 18:03 09/12/17 18:03 - ADDITIONAL ORDERS Additional order review: Laboratory Results 09/12/17 09/12/17 09/12/17 18:28 18:03 18:03 PT with INR 13.70 H INR 1.21 H PTT (Actin FS) 32.9 Sodium Potassium Chloride Carbon Dioxide Anion Gap BUN Creatinine Creat Clearance w eGFR Random Glucose Lactic Acid Calcium Total Bilirubin GGT 49 AST ALT Alkaline Phosphatase Total Protein Albumin Blood Type O POSITIVE Antibody Screen Negative 09/12/17 09/12/17 18:03 18:03 PT with INR INR PTT (Actin FS) Sodium 135 L Potassium 3.5 Chloride 100 Carbon Dioxide 20 L Anion Gap 15 BUN 6 L Creatinine 0.7 Creat Clearance w eGFR > 60 Random Glucose 61 L Lactic Acid 1.1 Calcium 9.2 Total Bilirubin 0.5 D GGT AST 10 L ALT 21 Alkaline Phosphatase 73 Total Protein 8.6 H Albumin 3.8 Blood Type Antibody Screen 09/12/17 18:03 RBC 4.74 MCV 91.4 MCHC 33.2 RDW 13.5 MPV 7.6 Neutrophils % 71.6 Lymphocytes % 18.1 D Monocytes % 9.1 Eosinophils % 0.6 D Basophils % 0.6 - Medications Given in the ED: ED Medications Discontinued Medications Generic Name Dose Route Start Last Admin Trade Name Franky PRN Reason Stop Dose Admin Dextrose 25 gm 09/12/17 21:15 09/12/17 21:43 D50w (Vial) - IVPUSH 09/12/17 21:16 25 gm NOW ONE Administration Diphenhydramine HCl 50 mg 09/12/17 20:49 09/12/17 21:01 Benadryl Injection - IVPUSH 09/12/17 20:50 50 mg ONCE ONE Administration Hydromorphone HCl 0.5 mg 09/12/17 20:02 09/12/17 20:44 Dilaudid Injection - IVPB 09/12/17 20:03 0.5 mg ONCE ONE Administration Dextrose/Sodium Chloride 1,000 mls @ 83 mls/hr 09/12/17 19:30 09/12/17 21:17 D5-Ns - IV Not Given ASDIR JADIEL Famotidine 20 mg in 12 mls @ 144 mls/hr 09/12/17 21:03 09/12/17 21:10 Pepcid 20 Mg/12 Ml Push IVPUSH 09/12/17 21:07 144 mls/hr NOW ONE Administration Methylprednisolone Sodium Succinate 125 mg 09/12/17 20:49 09/12/17 21:01 Solu-Medrol - IVPUSH 09/12/17 20:50 125 mg ONCE ONE Administration Ondansetron HCl 4 mg 09/12/17 20:42 09/12/17 20:44 Zofran Injection IVPUSH 09/12/17 20:43 4 mg ONCE ONE Administration Medical Decision Making - Medical Decision Making 09/13/17 02:00 Pt appears to have post surgical changes on Ct scan abd/pel. Spoke to Dr. Johnson. Pt surgeon. Pt to be admitted and he will see her in the morning. CBC in AM. Iv Abx for now *DC/Admit/Observation/Transfer Diagnosis at time of Disposition: Abdominal pain - Discharge Dispostion Condition at time of disposition: Stable Admit: Yes - Referrals Referrals: Abdulkadir Lindsey MD [Primary Care Provider] - - Patient Instructions - Post Discharge Activity
[2017-09-13] MEDS ORDERED: PIPERACILLIN/TAZOB 3.375 GM 3.375 GM/50 ML BAG IVPB ONE (02:01)
--- NOTE | 2017-09-13 02:58 | HP ---
<Wilber Hu - Last Filed: 09/13/17 02:34> CHIEF COMPLAINT: abd pain PCP: Alex HISTORY OF PRESENT ILLNESS: Pt is a 36 y/o F w/ PMH anxiety s/p sleeve gastrectomy at this facility on who presents to ED with RUQ abd pain. Pt states the pain was 10/10 at home and is 7/10 here. Pain radiates to the right flank and is worse when drinking any kind of fluid. Pt states she is supposed to drink 8oz of fluid every 3 times daily but she can only manage 3oz. Pt has not had BM since the surgery but has been passing gas. Pt states her vision goes blurry when she is experiencing pain. Denies nausea, vomiting, diarrhea, dysuria, fever, chills, headache. ER course was notable for: (1) WBC 13, INR 1.21, (2)Vascular study neg for DVT, GB U/S unremarkable, CT with free air in L pelvis likely from surgery (3) Flagyl/Zosyn Recent Travel: denies PAST MEDICAL HISTORY: Anxiety PAST SURGICAL HISTORY: s/p sleeve gastrectomy Social History: Smokin pack year smoker quit 4 years ago Alcohol: social Drugs: marijuana occasional Family History: denies Allergies ciprofloxacin [From Cipro] Allergy (Intermediate, Verified 09/12/17 20:00) Hives ciprofloxacin HCl [From Cipro] Allergy (Intermediate, Verified 09/12/17 20:00) Hives hydromorphone [From Dilaudid] Allergy (Intermediate, Verified 09/12/17 21:27) Hives shrimp Allergy (Verified 09/12/17 20:00) "HIVES" HOME MEDICATIONS: Home Medications Medication Instructions Recorded Clonazepam [Klonopin] 1 mg PO TID 09/04/17 Famotidine [Pepcid] 20 mg PO BID #60 tablet 09/05/17 Ibuprofen [Motrin -] 800 mg PO QID PRN 09/05/17 Oxycodone HCl/Acetaminophen 1 - 2 tab PO Q6H #28 tab MDD 4 09/05/17 [Percocet 5-325 mg Tablet] REVIEW OF SYSTEMS CONSTITUTIONAL: Absent: fever, chills, diaphoresis, generalized weakness, malaise, loss of appetite, weight change HEENT: Absent: rhinorrhea, nasal congestion, throat pain, throat swelling, difficulty swallowing, mouth swelling, ear pain, eye pain, visual changes CARDIOVASCULAR: Absent: chest pain, syncope, palpitations, irregular heart rate, lightheadedness , peripheral edema RESPIRATORY: Absent: cough, shortness of breath, dyspnea with exertion, orthopnea, wheezing, stridor, hemoptysis GASTROINTESTINAL:abdominal pain Absent: , abdominal distension, nausea, vomiting, diarrhea, constipation, melena , hematochezia GENITOURINARY: Absent: dysuria, frequency, urgency, hesitancy, hematuria, flank pain, genital pain MUSCULOSKELETAL: Absent: myalgia, arthralgia, joint swelling, back pain, neck pain SKIN: Absent: rash, itching, pallor HEMATOLOGIC/IMMUNOLOGIC: Absent: easy bleeding, easy bruising, lymphadenopathy, frequent infections ENDOCRINE: Absent: unexplained weight gain, unexplained weight loss, heat intolerance, cold intolerance NEUROLOGIC: Absent: headache, focal weakness or paresthesias, dizziness, unsteady gait, seizure, mental status changes, bladder or bowel incontinence PSYCHIATRIC: Absent: anxiety, depression, suicidal or homicidal ideation, hallucinations. PHYSICAL EXAMINATION Vital Signs - 24 hr 09/12/17 09/12/17 16:56 20:40 Temperature 97.7 F Pulse Rate 100 H Pulse Rate [ 100 H Right] Respiratory 20 20 Rate Blood Pressure 143/84 Blood Pressure 132/83 [Left Arm] O2 Sat by Pulse 100 100 Oximetry (%) GENERAL: Awake, alert, and fully oriented, in no acute distress. Obese HEAD: Normal with no signs of trauma. EYES: Pupils equal, round and reactive to light, extraocular movements intact, sclera anicteric, conjunctiva clear. No lid lag. EARS, NOSE, THROAT: oropharynx clear without exudates. Moist mucous membranes. NECK: Normal range of motion, supple without lymphadenopathy, JVD, or masses. LUNGS: Breath sounds equal, clear to auscultation bilaterally. No wheezes, and no crackles. No accessory muscle use. HEART: Regular rate and rhythm, normal S1 and S2 without murmur, rub or gallop. ABDOMEN: Tender to palpation. Nontender on distracted exam. Soft, not distended , normoactive bowel sounds, no guarding, no rebound, no masses. No hepatomegaly or splenomegaly. MUSCULOSKELETAL: Normal range of motion at all joints. No bony deformities or tenderness. No CVA tenderness. UPPER EXTREMITIES: 2+ pulses, warm, well-perfused. No cyanosis. No clubbing. No peripheral edema. LOWER EXTREMITIES: 2+ pulses, warm, well-perfused. No calf tenderness. No peripheral edema. NEUROLOGICAL: Cranial nerves II-XII intact. Normal speech. Normal gait. PSYCHIATRIC: Cooperative. Good eye contact. Appropriate mood and affect. SKIN: Warm, dry, normal turgor, no rashes or lesions noted, normal capillary refill. Laboratory Results - last 24 hr 09/12/17 09/12/17 09/12/17 18:03 18:03 18:03 WBC 13.2 H RBC 4.74 Hgb 14.4 D Hct 43.3 D MCV 91.4 MCH 30.4 MCHC 33.2 RDW 13.5 Plt Count 428 D MPV 7.6 Neutrophils % 71.6 Lymphocytes % 18.1 D Monocytes % 9.1 Eosinophils % 0.6 D Basophils % 0.6 PT with INR INR PTT (Actin FS) Sodium 135 L Potassium 3.5 Chloride 100 Carbon Dioxide 20 L Anion Gap 15 BUN 6 L Creatinine 0.7 Creat Clearance w eGFR > 60 Random Glucose 61 L Lactic Acid 1.1 Calcium 9.2 Total Bilirubin 0.5 D GGT AST 10 L ALT 21 Alkaline Phosphatase 73 Total Protein 8.6 H Albumin 3.8 Blood Type Antibody Screen 09/12/17 09/12/17 09/12/17 18:03 18:03 18:28 WBC RBC Hgb Hct MCV MCH MCHC RDW Plt Count MPV Neutrophils % Lymphocytes % Monocytes % Eosinophils % Basophils % PT with INR 13.70 H INR 1.21 H PTT (Actin FS) 32.9 Sodium Potassium Chloride Carbon Dioxide Anion Gap BUN Creatinine Creat Clearance w eGFR Random Glucose Lactic Acid Calcium Total Bilirubin GGT 49 AST ALT Alkaline Phosphatase Total Protein Albumin Blood Type O POSITIVE Antibody Screen Negative ASSESSMENT/PLAN: Pt is a 36 y/o F w/ PMH Axniety s/p sleeve gastrectomy who presents to ED with progressively worsening abdominal pain since her surgery. #Abd Pain -US neg -Vasc neg for DVT -CT w/ free air in L pelvis likely 2/2 surg. Abdomen is soft and NOT acute -NS, Dilaudid, Flagyl/Zosyn given in ED -Obs -NPO -NS -Labs in am -consult Dr. Martin #FEN -NS -lytes wnl -NPO #PPx -Hep SubQ #Dispo -Obs iWlber Hu MD PGY-1 IM <Sanju Estevez - Last Filed: 09/13/17 04:40> ATTENDING PHYSICIAN STATEMENT I saw and evaluated the patient. I reviewed the resident's note and discussed the case with the resident. I agree with the resident's findings and plan as documented. 36 year old s/p sleeve gastrectomy at this facility on 09/05/17 c/o epigastric abdominal pain associated with vomiting x 1 day. Vital Signs Temperature 97.7 F 09/12/17 16:56 Pulse Rate 100 H 09/12/17 20:40 Respiratory Rate 20 09/12/17 20:40 Blood Pressure 132/83 09/12/17 20:40 O2 Sat by Pulse Oximetry (%) 100 09/12/17 20:40 LUNGS: Breath sounds equal, clear to auscultation bilaterally. No wheezes, and no crackles. No accessory muscle use. HEART: Regular rate and rhythm, normal S1 and S2 without murmur, rub or gallop. ABDOMEN: Tender to palpation. Nontender on distracted exam. Soft, not distended , normoactive bowel sounds, no guarding, no rebound, no masses. No hepatomegaly or splenomegaly. MUSCULOSKELETAL: Normal range of motion at all joints. No bony deformities or tenderness. No CVA tenderness CBC, BMP 09/12/17 18:03 09/12/17 18:03 agree with plan above CT scan reviewed NPO stat dose of IVAB given IVF Consult Dr Martin Visit type - Emergency Visit Emergency Visit: Yes ED Registration Date: 09/13/17 Care time: The patient presented to the Emergency Department on the above date and was hospitalized for further evaluation of their emergent condition. - New Patient This patient is new to me today: Yes Date on this admission: 09/13/17 - Critical Care Critical Care patient: No
[2017-09-13] MEDS ORDERED: SODIUM CHLORIDE 1,000 ML IV SCH (03:00)
[2017-09-13] MEDS ORDERED: IBUPROFEN 400 MG TABLET (FP) PO PRN (03:03)
[2017-09-13] MEDS ORDERED: oxyCODONE HCL 5 MG TABLET PO PRN ×2 (03:06→03:07)
[2017-09-13] MEDS ORDERED: ACETAMINOPHEN 325 MG TABLET (FP) PO PRN ×2 (03:06→03:07)
[2017-09-13] MEDS ORDERED: clonazePAM 0.5 MG TABLET ONE ×2 (05:01→14:22)
[2017-09-13] MEDS ORDERED: HEPARIN NA (PORCINE) 5,000 UNITS/ML 1ML VIAL ONE (05:02)
[2017-09-13] MEDS: clonazePAM 0.5 MG TABLET PO SCH ×2 (05:53→14:30)
[2017-09-13] MEDS: HEPARIN NA (PORCINE) 5,000 UNITS/ML 1ML VIAL SQ SCH ×2 (05:53→14:30)
[2017-09-13 08:27] LABS: HEMATOCRIT 41.4 % (32.4-45.2); HEMOGLOBIN 13.6 GM/dL (10.7-15.3); MCH 29.9 pg (25.7-33.7); MCHC 32.9 g/dl (32.0-36.0); MEAN CELL VOLUME 91.1 fl (80-96); MEAN PLT VOLUME 7.6 fl (7.5-11.1); PLATELET COUNT 444 K/MM3 (134-434); RBC 4.55 M/mm3 (3.60-5.2); RDW 13.3 % (11.6-15.6); WHITE BLOOD COUNT 10.9 K/mm3 (4.0-10.0)
[2017-09-13] MEDS ORDERED: FAMOTIDINE 20 MG/50 ML IVPB 20 MG/50 ML MG IVPB ONE (08:59)
[2017-09-13] MEDS ORDERED: RANITIDINE HCL 150 MG TABLET (FP) ONE (08:59)
[2017-09-13 09:00] LABS: ALBUMIN 3.5 g/dl (3.4-5.0); ALK PHOS 68 U/L (45-117); ANION GAP 11 (8-16); BILIRUBIN,TOTAL 0.5 mg/dL (0.2-1.0); BLOOD UREA NITROGEN 6 mg/dL (7-18); CALCIUM 9.4 mg/dL (8.5-10.1); CHLORIDE 103 mmol/L (98-107); CO2 22 mmol/L (21-32); CREATININE 0.7 mg/dL (0.55-1.02); GLUCOSE,RANDOM 111 mg/dL (74-106); POTASSIUM 4.6 mmol/L (3.5-5.1); SGOT/AST 9 U/L (15-37); SGPT/ALT 19 U/L (12-78); SODIUM 136 mmol/L (136-145); TOT PROT 8.1 g/dl (6.4-8.2)
--- NOTE | 2017-09-13 09:18 | PN ---
Progress Note (short form) - Note Progress Note: ID consult dictated imp./reccd 36 year old female s/p laparoscopic gastric sleeve 09/05with Dr Johnson, also liver biopsy, discharged 09/07 returns with increasing RUQ pain reports she has had poin post op midepigastric radiating to RUQ has been increasing since discharge poor po intake - even of liquids no fevers or chills no vomiting +passing gas no BM wbc 13.2 ct scan abd/pelvis 2 sub hepatic fluid collections- ?punctate air/gas, left anterior wall collection received zosyn/flagyl in ED cipro allergy (hives) developed hives to dilaudid in ED looks quite comfortable pain midepigastric and RUQ increased abd pain with post op fluid collections noted on ct-POD #7 ?infected collections continue zosyn awaiting surgical evaluation Dr Johnson entire history and physical was conducted with family member on speaker phone during the entirety Problem List - Problems (1) Abdominal pain Code(s): R10.9 - UNSPECIFIED ABDOMINAL PAIN
[2017-09-13] MEDS ORDERED: PIPERACILLIN/TAZOB 3.375 GM/50 ML PRE-DOCKED IVPB SCH (09:30)
[2017-09-13] MEDS ORDERED: PIPERACILLIN/TAZOB 4.5 GM 4.5 GM/100 ML BAG IVPB ONE (09:34)
[2017-09-13] MEDS: FAMOTIDINE IV 20 MG/12 ML VIAL IVPUSH SCH (09:40)
[2017-09-13] MEDS ORDERED: PIPERACILLIN/TAZOB 4.5 GM 4.5 GM in DEXTROSE 5%-WATER - 100 ML IVPB SCH (10:00)
[2017-09-13] MEDS ORDERED: RANITIDINE HCL 150 MG TABLET (FP) PO SCH (10:00)
[2017-09-13 10:21] LABS: URINE APPEARANCE TURBID; URINE BILIRUBIN NEGATIVE (NEGATIVE); URINE BLOOD NEGATIVE (NEGATIVE); URINE COLOR YELLOW; URINE GLUCOSE (UA) 1+ (NEGATIVE); URINE KETONE 2+ (NEGATIVE); URINE LEUK ESTERASE TRACE (NEGATIVE); URINE NITRITE NEGATIVE (NEGATIVE)
[2017-09-13 10:40] LABS: URINE PROTEIN 1+ (NEGATIVE)
[2017-09-13 11:22] LABS: EPI CELLS RARE /HPF (FEW); URINE HYALINE CAST 3 /lpf; URINE MUCUS RARE; YEAST FEW
[2017-09-13] MEDS ORDERED: ACETAMINOPHEN 325 MG TABLET (FP) ONE (13:09)
[2017-09-13] MEDS ORDERED: oxyCODONE HCL 5 MG TABLET ONE (13:10)
[2017-09-13 13:51] VITALS: PULSE 88; TEMP 98.4
--- NOTE | 2017-09-13 14:06 | CONS ---
DATE OF CONSULTATION: 09/13/2017 REQUESTING PHYSICIAN: The hospitalist service. HISTORY OF PRESENT ILLNESS: Patient was seen in the holding area in the emergency room. This is a 36-year-old woman who underwent a laparoscopic gastric sleeve on September [address] Johnson. She also had a liver biopsy at that time. She was discharged September 07. She returned last night complaining of increasing pain, which she reports is mid-epigastric radiating to a right upper quadrant. She reports she had the pain postoperatively, but it has been increasing since discharge. She has had poor oral intake even of liquids. There have been no fevers or chills. No vomiting. She is passing gas, but has not had a bowel movement. PAST MEDICAL HISTORY: Notable for anxiety. She has a history of , tubal ligation, umbilical hernia repair in the past, and the recent sleeve gastrectomy 7 days ago. FAMILY HISTORY: Unremarkable. ALLERGIES: She is allergic to CIPROFLOXACIN which gives her hives. In the emergency room, she received DILAUDID, which gave her hives, as well. MEDICATIONS: At home include Klonopin, Pepcid, Motrin, and Percocet. SOCIAL HISTORY: She lives at home, and her father is there as well. She has 6 children. No one is currently sick. REVIEW OF SYSTEMS: She denies any fevers or chills. She denies any nausea or vomiting. As stated before, she has not had a bowel movement, but is passing gas. PHYSICAL EXAMINATION Vital signs: She has had no fever. Temperature is 97.5, pulse of 83, blood pressure 105/50, respiratory rate 16. HEENT: She is normocephalic. Her eyes are anicteric. Neck: Supple. Lungs: Clear to auscultation. Abdomen: Soft. She has well-healed laparoscopic scars. She has right upper quadrant discomfort on palpation. Extremities: Without edema. DIAGNOSTIC DATA: Labs are notable for a white count yesterday at 13.2, today it is 10.9, platelets of 444. INR is 1.2. BUN 6, creatinine 0.7, with normal LFTs. Urinalysis had 7 white cells. No cultures were sent. She was given Zosyn and Flagyl last night. CT scan of the abdomen and pelvis was done. She has 2 fluid collections that are subhepatic. One of them has 2 punctate foci of gas. As well, she has a left anterior abdominal wall collection. She had a duplex of her legs that was negative for DVT. As well, she had a sonogram of her gallbladder that did not show any obvious cholelithiasis or cholecystitis. SUMMARY: 1. This is a 36-year-old woman with increased abdominal pain with postoperative fluid collections noted on CT scan, postoperative day No. 7 status post laparoscopic gastric sleeve. Questions of infected collections have been raised. Would continue Zosyn at this time. Awaiting surgical evaluation by Dr. Johnson. 2. Obesity for which she has had the surgery. 3. History of CIPROFLOXACIN allergy and now HYDROMORPHONE allergy. The entire history and physical examination was conducted with a family member on her speaker phone during the entirety. This was per the patients request. FARTUN MART M.D. [id number]
[2017-09-13] MEDS ORDERED: SIMETHICONE 40 MG/0.6 ML BOTTLE PO ONE (14:11)
[2017-09-13] MEDS ORDERED: SIMETHICONE 80 MG TAB.CHEW (FP) PO ONE (14:15)
--- NOTE | 2017-09-13 15:59 | DS ---
Physical Examination Vital Signs: Vital Signs Temperature 98.4 F 09/13/17 13:50 Pulse Rate 88 09/13/17 13:50 Respiratory Rate 18 09/13/17 13:50 Blood Pressure 126/72 09/13/17 13:50 O2 Sat by Pulse Oximetry (%) 97 09/13/17 13:50 Findings/Remarks: General: NAD, A&Ox3, morbidly obese Lungs: CTA bilaterally Heart: RRR, S1S2 Abd: Soft, non-tender, non-distended. Normoactive bowel sounds Ext: Warm, well-perfused Labs: CBC, BMP 09/13/17 08:07 09/13/17 08:07 Discharge Summary Reason For Visit: ABDOMINAL PAIN Current Active Problems Abdominal pain (Acute) Hospital Course: Spoke to Dr. Johnson who states can discharge the patient with po antibiotics and clear liquid diet advance to protein shakes and follow-up in the office within [address]. [address] Roman who recommends Ceftin and Flagyl until the patient is reevaluated by surgery within 1 week. Patient tolerated clear juice in the ED. Condition: Improved - Instructions Diet, Activity, Other Instructions: Please return to the ED with new, persistent, or worsening symptoms. Please follow-up with providers as indicated. Continue antibiotics until you are evaluated by Dr. Johnson within 1 week. Clear liquid diet for now, then advance to protein shakes as tolerated. Referrals: Reza Johnson MD [Staff Physician] - (Please follow-up with Dr. Johnson within 5- 7 days for further post operative management. ) Abdulkadir Lindsey MD [Primary Care Provider] - 1 Week Disposition: HOME - Home Medications Comprehensive Discharge Medication List: Ambulatory Orders Clonazepam [Klonopin] 1 mg PO TID 09/04/17 Famotidine [Pepcid] 20 mg PO BID #60 tablet 09/05/17 Ibuprofen [Motrin -] 800 mg PO QID PRN 09/05/17 Oxycodone HCl/Acetaminophen [Percocet 5-325 mg Tablet] 1 - 2 tab PO Q6H #28 tab MDD 4 09/05/17 Cefuroxime Axetil [Ceftin -] 500 mg PO Q12H #20 tablet 09/13/17 Metronidazole [Flagyl -] 500 mg PO Q8H #30 tablet 09/13/17
[2017-09-13 16:18] VITALS: BP 125/60
--- NOTE | 2017-09-13 18:05 | CONSULT ---
Consult Consult Specialty:: Bariatric surgery Reason for Consultation:: Epigastric pain - History of Present Illness History of Present Illness: 36 female s/p sleeve gastrectomy 1 week ago Developed epigastric pain No nausea No fevers Improved with pain medication and simethicone - History Source History Provided By: Patient Limitations to Obtaining History: No Limitations - Past Medical History ...LMP: 09/03/17 ...: No - Alcohol/Substance Use Hx Alcohol Use: No - Smoking History Smoking history: Former smoker Have you smoked in the past 12 months: No Aproximately how many cigarettes per day: 1 If you are a former smoker, when did you quit?: 4YRS AGO Home Medications - Allergies Allergies/Adverse Reactions: Allergies Allergy/AdvReac Type Severity Reaction Status Date / Time ciprofloxacin [From Cipro] Allergy Intermediate Hives Verified 09/12/17 20:00 ciprofloxacin HCl Allergy Intermediate Hives Verified 09/12/17 20:00 [From Cipro] hydromorphone [From Dilaudid] Allergy Intermediate Hives Verified 09/12/17 21:27 shrimp Allergy "HIVES" Verified 09/12/17 20:00 - Home Medications Home Medications: Ambulatory Orders Clonazepam [Klonopin] 1 mg PO TID 09/04/17 Famotidine [Pepcid] 20 mg PO BID #60 tablet 09/05/17 Ibuprofen [Motrin -] 800 mg PO QID PRN 09/05/17 Oxycodone HCl/Acetaminophen [Percocet 5-325 mg Tablet] 1 - 2 tab PO Q6H #28 tab MDD 4 09/05/17 Cefuroxime Axetil [Ceftin -] 500 mg PO Q12H #20 tablet 09/13/17 Metronidazole [Flagyl -] 500 mg PO Q8H #30 tablet 09/13/17 Review of Systems - Review of Systems Constitutional: denies: Chills, Fever Neck: reports: No Symptoms Cardiovascular: denies: Chest Pain Respiratory: denies: Cough Gastrointestinal: reports: Abdominal Pain. denies: Nausea Neurological: denies: Change in LOC Pain Intensity: 3 Physical Exam Vital Signs: Vital Signs Temperature 98.4 F 09/13/17 13:50 Pulse Rate 88 09/13/17 16:14 Respiratory Rate 18 09/13/17 16:14 Blood Pressure 125/60 09/13/17 16:14 O2 Sat by Pulse Oximetry (%) 97 09/13/17 16:14 Constitutional: Yes: Calm Cardiovascular: Yes: WNL Respiratory: Yes: Regular Gastrointestinal: Yes: Soft, Tenderness, Epigastrium. No: Tenderness, Rebound Wound/Incision: Yes: Clean/Dry Neurological: Yes: Alert, Oriented Labs: CBC, BMP 09/13/17 08:07 09/13/17 08:07 Imaging - Results Cat Scan: Report Reviewed, Image Reviewed Ultrasound: Report Reviewed, Image Reviewed Problem List - Problems (1) Abdominal pain Code(s): R10.9 - UNSPECIFIED ABDOMINAL PAIN Qualifiers: Abdominal location: epigastric Qualified Code(s): R10.13 - Epigastric pain Assessment/Plan Epigastric pain- improved Would like to be discharged WBC improved Antibiotics Will follow up next week
--- NOTE | 2017-09-23 12:27 | PDOC ---
Attending Attestation - Resident Resident Name: Paulino Nuñez - ED Attending Attestation I have performed the following: I have examined & evaluated the patient, The case was reviewed & discussed with the resident, I agree w/resident's findings & plan, Exceptions are as noted - HPI HPI: 36 yo hx gastric sleeve by Dr. Johnson 1 week ago presents with epigastric pain radiating to RUQ and to R mid-back. Abrupt onset. No N/V/D, f/c. She has been passing flatus, but has not had a BM since the surgery. She has been on opioids for pain since the surgery. - Physicial Exam PE: GENERAL: Awake, alert, and fully oriented, in no acute distress. Appears uncomfortable. HEAD: No signs of trauma EYES: PERRLA, EOMI, sclera anicteric, conjunctiva clear ENT: Auricles normal inspection, hearing grossly normal, nares patent, oropharynx clear without exudates. Moist mucosa NECK: Normal ROM, supple, no lymphadenopathy, JVD, or masses LUNGS: Breath sounds equal, clear to auscultation bilaterally. No wheezes, and no crackles HEART: Regular rate and rhythm, normal S1 and S2, no murmurs, rubs or gallops ABDOMEN: Soft, +epigastric tenderness, normoactive bowel sounds. No guarding, no rebound. No masses EXTREMITIES: Normal range of motion, no edema. No clubbing or cyanosis. No cords, erythema, or tenderness NEUROLOGICAL: Cranial nerves II through XII grossly intact. Normal speech, normal gait SKIN: Warm, Dry, normal turgor, no rashes or lesions noted. - Medical Decision Making Case d/w Dr. Johnson regarding imaging. Will obtain CT a/p and discuss further management based on findings.
== END 2017-09-13 16:20 | disposition home or self-care (01) ==
LOC: JER 16:43 → JERBED 09-13 01:58 → UNDOADMOB 09-13 02:07
PROVIDERS: ADMIT Internal Medicine; ATTEND Registered Nurse
PROC: 3E03329 Introduction of Other Anti-infective into Peripheral Vein, Percutaneous Approach (ICD-10-PCS; principal; 2017-09-13)
PROC: 3E033NZ Introduction of Analgesics, Hypnotics, Sedatives into Peripheral Vein, Percutaneous Approach (ICD-10-PCS; 2017-09-13)
PROC: 3E0337Z Introduction of Electrolytic and Water Balance Substance into Peripheral Vein, Percutaneous Approach (ICD-10-PCS; 2017-09-13)
PROC: 3E013GC Introduction of Other Therapeutic Substance into Subcutaneous Tissue, Percutaneous Approach (ICD-10-PCS; 2017-09-13)
DX: R10.11 Right upper quadrant pain (principal); R10.13 Epigastric pain; F41.9 Anxiety disorder, unspecified; E66.01 Morbid (severe) obesity due to excess calories; Z68.41 Body mass index [BMI] 40.0-44.9, adult; Z88.1 Allergy status to other antibiotic agents; Z88.6 Allergy status to analgesic agent; Z98.84 Bariatric surgery status; Z91.013 Allergy to seafood; Z87.891 Personal history of nicotine dependence
CPT/HCPCS: 36415; 74177-TC; 76705-TC; 80053; 81003; 81015; 82977; 83605; 84703; 85025; 85027; 85610; 85730; 86850; 86900; 86901; 93970-TC; 96365; 96372; 96375; 99285-25; G0378; J1644

== ENCOUNTER 2017-09-22 12:10 | Emergency (ER) | payer OTHER ==
[2017-09-22 12:22] VITALS: BP 116/83; PULSE 98; TEMP 98.3; BMI 41.6
--- NOTE | 2017-09-22 12:39 | PDOC ---
History of Present Illness - General Chief Complaint: Pain, Acute Stated Complaint: ABDOMINAL PAIN Time Seen by Provider: 09/22/17 12:20 History Source: Patient Exam Limitations: No Limitations - History of Present Illness Initial Comments: This is a 36 YOF who is POD #16 from lap VSG and liver biopsy with Dr. Johnson [facility] , as well as distant umbilical hernia repair, and CS, who p/w nausea and NBNB non-projectile vomiting x 10 episodes since this morning. She was seen here in the ED 10 days ago with increased epigastric pain, admitted and started on Flagyl and cefuroxime for leukocytosis (still taking this regimen), and was discharged feeling better. She has additionally had left upper quadrant/left lower chest pain this morning, mild SOB, and intermittent rapid palpitations. She notes increased crusting and drainage from one of her surgical incisions, but no warmth, redness, or strange odors. She has had very loose stool ever since her surgery which is unchanged lately. She denies headache, neck/back pain , abdominal pain, urinary sxs, surgical incisional pain, constipation, black or bloody stool, leg swelling, or other symptoms. She does not take any exogenous estrogen and does not use any form of control, and has never had trouble with blood clots. Past History - Past Medical History Allergies/Adverse Reactions: Allergies Allergy/AdvReac Type Severity Reaction Status Date / Time ciprofloxacin [From Cipro] Allergy Intermediate Hives Verified 09/22/17 12:23 ciprofloxacin HCl Allergy Intermediate Hives Verified 09/22/17 12:23 [From Cipro] shrimp Allergy "HIVES" Verified 09/22/17 12:23 hydromorphone [From Dilaudid] AdvReac Intermediate Hives Verified 09/22/17 12:23 Home Medications: Ambulatory Orders Cefuroxime Axetil [Ceftin -] 500 mg PO Q12H #20 tablet 09/13/17 Metronidazole [Flagyl -] 500 mg PO Q8H #30 tablet 09/13/17 Anemia: No Asthma: No Cancer: No Cardiac Disorders: No CVA: No COPD: No CHF: No Diabetes: No GI Disorders: No Disorders: No HTN: No Hypercholesterolemia: Yes Liver Disease: No Psychiatric Problems: Yes (ANXIETY.DEPRESSION) Seizures: Yes (1YEAR AGO-WAS ON MED FOR 2WEEKS THEN STOPPED (PMD AWARE)) Thyroid Disease: No - Surgical History Abdominal Surgery: Yes (UMBILICAL HERNIA REPAIR.) Cholecystectomy: Yes Gastric Stapling: (GASTRIC SLEEVE: 08/2017) - Immunization History Td Vaccination: No Immunization Up to Date: Yes - Suicide/Smoking/Psychosocial Hx Smoking Status: No Smoking History: Never smoked Years of Tobacco Use: 0 Have you smoked in the past 12 months: No Number of Cigarettes Smoked Daily: 1 If you are a former smoker, when did you quit?: 4YRS AGO Cigars Per Day: 0 Hx Alcohol Use: No Drug/Substance Use Hx: No Substance Use Type: None Hx Substance Use Treatment: No Review of Systems - Review of Systems Able to Perform ROS?: Yes Constitutional: No: Chills, Fever, Unexplained wgt Loss HEENTM: No: Nose Congestion, Throat Pain Respiratory: Yes: Cough, Shortness of Breath, SOB with Exertion Cardiac (ROS): Yes: Chest Pain, Palpitations. No: Edema, Syncope ABD/GI: Yes: Diarrhea, Vomiting. No: Constipated, Nausea, Abdominal cramping : No: Burning, Dysuria Musculoskeletal: No: Back Pain, Neck Pain Integumentary: No: Bruising, Rash Neurological: No: Headache, Numbness, Tingling, Weakness, Dizziness Endocrine: No: Unexplained Weight Gain, Unexplained Weight Loss *Physical Exam - Vital Signs Last Vital Signs Temp Pulse Resp BP Pulse Ox 98.3 F 98 H 18 116/83 99 09/22/17 12:15 09/22/17 12:15 09/22/17 12:15 09/22/17 12:15 09/22/17 12:15 - Physical Exam General Appearance: Yes: Nourished, Appropriately Dressed, Obese, Other ( pleasant adult female who answers questions appropriately, appears comfortable, emesis bag in hand containing emesis). No: Apparent Distress HEENT: positive: EOMI, ZOEY, Normal ENT Inspection, Normal Voice, Hearing Grossly Normal. negative: Scleral Icterus (R), Scleral Icterus (L), Nasal Congestion Neck: positive: Trachea midline, Supple. negative: Tender, Rigid Respiratory/Chest: positive: Lungs Clear, Normal Breath Sounds. negative: Respiratory Distress, Rapid RR, Crackles, Rhonchi, Stridor, Wheezing Cardiovascular: positive: Regular Rhythm, S1, S2, Tachycardia. negative: Edema , JVD, Murmur Gastrointestinal/Abdominal: positive: Normal Bowel Sounds, Soft, Other (obese, one laparoscopic incision dehiscent with crusting and small amount of drainage and with exposed fat, no surrounding erythema or warmth, remainder of incisions CDI). negative: Tender, Organomegaly, Pulsatile Mass, Guarding Musculoskeletal: positive: Normal Inspection. negative: Decreased Range of Motion, Vertebral Tenderness Extremity: positive: Normal Capillary Refill, Normal Inspection, Normal Range of Motion. negative: Tender, Cyanosis, Pedal Edema, Swelling, Calf Tenderness Integumentary: positive: Normal Color, Dry, Warm. negative: Erythema, Rash, Bruising Neurologic: positive: bilingual speech language pathologist II-XII NML intact (grossly), Fully Oriented, Alert, Normal Mood/Affect, Normal Response, Motor Strength 12/28 ED Treatment Course - LABORATORY CBC & Chemistry Diagram: 09/22/17 13:09 09/22/17 13:09 Medical Decision Making - Medical Decision Making 09/22/17 13:17 DDX IBNLT infection (wound, UTI, PNA, etc), med withdrawal, gastroenteritis, PUD , intestinal perforation, abscess formation, ACS, PE, atelectasis. Ordered is CBCD CMP Mg Phos Cardiac panel Lipase UA cx hCG, CXR duplex BLE Chest CTA EKG. 09/22/17 16:53 Lab work, CXR, chest CTA negative. UA notable for 4+ urobilinogen, otherwise wnl. Page sent to Pt's bariatric surgeon Dr. Johnson. *DC/Admit/Observation/Transfer Diagnosis at time of Disposition: Morbid obesity due to excess calories, Palpitations Vomiting Qualifiers: Vomiting type: unspecified Vomiting Intractability: non-intractable Nausea presence: with nausea Qualified Code(s): R11.2 - Nausea with vomiting, unspecified - Discharge Dispostion Disposition: HOME Condition at time of disposition: Stable Admit: No - Referrals Referrals: Abdulkadir Lindsey MD [Primary Care Provider] - - Patient Instructions Additional Instructions: You were seen in the ER for nausea and vomiting. We did lab tests on your blood and urine, as well as an electrocardiogram, a chest x-ray, and a CT scan of your abdomen. Everything was normal, and we gave you medication for your nausea which did work. Please call your surgeon's office on Michael morning to have a check-up and to have your surgical sites looked at. Continue taking your antibiotics. Return to the ER for any new or worsening symptoms like fever, inability to keep down any liquids, bloody vomit or stool, or other symptoms. - Post Discharge Activity
[2017-09-22] MEDS ORDERED: ONDANSETRON 4 MG/2 ML VIAL IVPB ONE (12:55)
[2017-09-22] MEDS ORDERED: SODIUM CHLORIDE 0.9% 1000 ML INFUS.BAG IV STA (12:55)
[2017-09-22] MEDS ORDERED: ONDANSETRON 4 MG/2 ML VIAL ONE (13:15)
--- NOTE | 2017-09-22 13:27 | PDOC ---
Attending Attestation - Resident Resident Name: Kathrine Maynard - ED Attending Attestation I have performed the following: I have examined & evaluated the patient, The case was reviewed & discussed with the resident, I agree w/resident's findings & plan, Exceptions are as noted - HPI HPI: 09/22/17 18:38 The patient is a 36 year old female, with a significant past medical history of DVT (previous ) and GERD, who presents to the emergency department with chest pain, palpitations, shortness of breath, nausea and vomiting. She states that she has had 10 episodes of emesis that were nonbloody and nonbilious. She states that she had a lap VSG and liver biopsy 16 days ago. She reports that she has been having loose stool since her surgery. She states that she was in the ED 10 days ago with GERD like symptoms, she had a EGD and was placed on antibiotics prior to discharge. She denies taking any estrogen or control pills. Pt is also concerned that one of her scars is crusting slightly and she is concerned she has an infection. The patient denies headache and dizziness. Denies fever, chills, diarrhea and constipation. Denies dysuria, frequency, urgency and hematuria. Allergies: Cipro, dilaudid Past surgical history: , bilateral tubal ligation, hernia repair Social history: No alcohol, tobacco or drug use reported Surgeon: Dr. Johnson - Physicial Exam PE: 09/22/17 18:41 GENERAL: (+) Morbidly obese. Awake, alert, and fully oriented, in no acute distress HEAD: No signs of trauma, normocephalic, atraumatic EYES: PERRLA, EOMI, sclera anicteric, conjunctiva clear ENT: Auricles normal inspection, hearing grossly normal, nares patent, oropharynx clear without exudates. Moist mucosa NECK: Normal ROM, supple, no lymphadenopathy, JVD, or masses LUNGS: No distress, speaks full sentences, clear to auscultation bilaterally HEART: Regular rate and rhythm. Normal S1 and S2, no murmurs, rubs or gallops, peripheral pulses normal and equal bilaterally. ABDOMEN: Soft, obese, no focal ttp, normoactive bowel sounds. No guarding, no rebound. EXTREMITIES : Normal inspection, Normal range of motion, no edema. No clubbing or cyanosis. NEUROLOGICAL: Cranial nerves II through XII grossly intact. Normal speech, no focal sensorimotor deficits SKIN: Warm, Dry, normal turgor, no rashes or lesions noted. Multiple laparoscopic incisions on abdomen appear c/d/i, however central camilla-unbilical incision with some scabbing and granulation tissue w/o erythema, drainage, warmth, or dehiscence. - Medical Decision Making 09/22/17 13:24 36-year-old female with recent gastric surgery presents with multiple episodes of vomiting since this morning as well as chest pain, shortness of breath and concern about incisionn infection. Vitals remarkable for tachycardia to 104 initially, but 92 on my exam. Exam with no focal abdominal tenderness to palpation. Differential is wide and includes but is not limited to PE versus postop complication versus infection. 09/22/17 17:29 Labs unremarkable. Urinalysis with some leukesterase and some white cells however many epithelial cells, likely contaminated. Since patient is asymptomatic with no dysuria, frequency or urgency, this is unlikely to represent a UTI. CTA was negative for pulmonary embolism. While in the emergency department patient had negative serial abdominal exams with no tenderness to palpation. Patient also had no episodes of vomiting while in the emergency department and was able to tolerate PO. Discussed the case with the patient's bariatric surgeon Dr. Johnson, he recommends that we discharge her and have her call his office in the morning for follow-up this week. Plan discussed with patient as well as results and she requests discharge home. I discussed the physical exam findings, ancillary test results and final diagnoses with the patient. I answered all of the patient's questions. The patient was satisfied with the care received and felt comfortable with the discharge plan and treatment plan. The patient will call their primary care physician within 24 hours to arrange follow-up and will return to the Emergency Department with any new, persistent or worsening symptoms. Heart Score/ECG Review #1 09/22/17 16:25 Twelve-lead EKG was performed and reviewed by me. Normal sinus rhythm, rate 87. Normal axis and intervals. No ST elevations. Isolated T-wave inversion in lead 3.
[2017-09-22 13:35] LABS: VENOUS PC02 44.8 mmHg (38-52); VENOUS PH 7.39 (7.32-7.42); VENOUS PO2 21.1 mmHg (28-48)
[2017-09-22 13:36] LABS: HEMOGLOBIN 14.6 GM/dL (10.7-15.3)
[2017-09-22 13:50] LABS: INR 1.37 (0.82-1.09); PROTHROMBIN TIME (PATIENT) 15.5 SEC (9.98-11.88)
[2017-09-22 13:53] LABS: ACTIVATED PTT 31.3 SECONDS (26.9-34.4)
[2017-09-22 13:58] LABS: ANION GAP 11 (8-16); BILIRUBIN,TOTAL 0.4 mg/dL (0.2-1.0); BLOOD UREA NITROGEN 7 mg/dL (7-18); CALCIUM 10.1 mg/dL (8.5-10.1); CHLORIDE 101 mmol/L (98-107); CO2 27 mmol/L (21-32); CREATININE 0.8 mg/dL (0.55-1.02); GLUCOSE,RANDOM 82 mg/dL (74-106); LIPASE 297 U/L (73-393); POTASSIUM 3.8 mmol/L (3.5-5.1); SGOT/AST 16 U/L (15-37); SGPT/ALT 22 U/L (12-78); SODIUM 139 mmol/L (136-145); TOT PROT 8.2 g/dl (6.4-8.2)
[2017-09-22 14:00] LABS: ALK PHOS 60 U/L (45-117)
[2017-09-22 14:05] LABS: BASO % 0.9 % (0-2.0); EOS % 0.2 % (0-4.5); HEMATOCRIT 44.8 % (32.4-45.2); LYMPH % 22.4 % (8-40); MCH 29.8 pg (25.7-33.7); MCHC 32.7 g/dl (32.0-36.0); MEAN CELL VOLUME 91.1 fl (80-96); MONO % 11.3 % (3.8-10.2); NEUT % 65.2 % (42.8-82.8); PLATELET COUNT 329 K/MM3 (134-434); RBC 4.91 M/mm3 (3.60-5.2); RDW 13.5 % (11.6-15.6); WHITE BLOOD COUNT 9.1 K/mm3 (4.0-10.0)
[2017-09-22 14:11] LABS: URINE APPEARANCE SLCLOUDY; URINE BILIRUBIN NEGATIVE (NEGATIVE); URINE BLOOD NEGATIVE (NEGATIVE); URINE COLOR AMBER; URINE GLUCOSE (UA) NEGATIVE (NEGATIVE); URINE KETONE 2+ (NEGATIVE); URINE NITRITE NEGATIVE (NEGATIVE); URINE UROBILINOGEN 4.0 E.U/dl mg/dL (0.2-1.0)
[2017-09-22 14:24] LABS: URINE LEUK ESTERASE 1+ (NEGATIVE); URINE PROTEIN 2+ (NEGATIVE)
[2017-09-22 14:26] LABS: EPI CELLS MANY /HPF (FEW); URINE HYALINE CAST 6 /lpf; URINE MUCUS MODERATE
--- NOTE | 2017-09-23 13:04 | EKG ---
Test Reason : Blood Pressure : / mmHG Vent. Rate : 087 BPM Atrial Rate : 087 BPM P-R Int : 146 ms QRS Dur : 088 ms QT Int : 358 ms P-R-T Axes : 063 012 018 degrees QTc Int : 430 ms NORMAL SINUS RHYTHM NORMAL ECG WHEN COMPARED WITH ECG OF 21-FEB-2017 18:28, NO SIGNIFICANT CHANGE WAS FOUND Confirmed by LADONNA IRELAND MD ([id number]) on 09/23/2017 1:04:35 PM Referred By: Confirmed By:LADONNA IRELAND MD
--- NOTE | 2017-09-26 07:33 | PDOC ---
Patient Follow-up (Call Back) - Post ED Follow - Up Condition at time of discharge: Stable Disposition at time of original discharge: HOME Reason for Call Back: Abnwl. Microbiology (Left message on patient's cell phone. )
--- NOTE | 2017-09-26 07:35 | PDOC ---
Patient Follow-up (Call Back) - Post ED Follow - Up Condition at time of discharge: Stable Disposition at time of original discharge: HOME Reason for Call Back: Abnwl. Microbiology (Left message on patient's home phone)
--- NOTE | 2017-09-26 13:27 | PDOC ---
Patient Follow-up (Call Back) - Post ED Follow - Up Condition at time of discharge: Stable Disposition at time of original discharge: HOME Reason for Call Back: Abnwl. Microbiology (Pt called back. Informed her we can only treat her UTI with IV antibiotics and that she needs to return to the ER. She said she would come in as soon as she can)
== END 2017-09-22 17:57 | disposition home or self-care (01) ==
LOC: SUPCPDRO 12:10 → JER 12:10
DX: E66.01 Morbid (severe) obesity due to excess calories (principal); Z68.41 Body mass index [BMI] 40.0-44.9, adult; R00.2 Palpitations; R11.2 Nausea with vomiting, unspecified; Z98.84 Bariatric surgery status
CPT/HCPCS: 36415; 71046-TC-FY; 71275-TC; 80053; 81003; 81015; 82550; 82803; 83605; 83690; 84484; 85025; 85610; 85730; 86850; 86900; 86901; 87086; 87186; 93005; 93010; 99283-25